=== PATIENT | male | born 1950 | race Caucasian/White ===

== ENCOUNTER 2017-02-03 13:59 | Inpatient (IN) | payer OTHER ==
[~2017-02-03] VITALS: Ht 172.7 cm; Wt 81.6 kg
[2017-02-03] MEDS ORDERED: SODIUM CHLORIDE 0.9% 1000ML 1,000 ML IV SCH (14:05)
[2017-02-03] MEDS ORDERED: WARF7.5T4 PO (14:30)
[2017-02-03] MEDS ORDERED: ATOR-26 PO (14:30)
--- NOTE | 2017-02-03 14:32 | EMERGENCY ROOM VISIT NOTE ---
History Report prepared by Viridiana: Jaclyn Hunter Under the Supervision of: Dr. Topher Feliz D.O. First contact with patient: 14:04 Stated Complaint: POSSIBLE STROKE History of Present Illness The patient is a 66 year old male who presents to the Emergency Room with complaints of stroke-like symptoms beginning around 9:00am today. Patient reports a left-sided weakness and a left facial droop. He feels like it is hard to formulate speech. The patient was admitted to a hospital in [facility] at the beginning of the month for a stroke on January 13. He was found to have a carotid artery dissection at that time. No stents were placed. He was started on Coumadin and discharged from the hospital last week. He recently moved to the [facility]. He followed-up with a local neurologist this week. The patient denies headache, nausea, and vomiting. Source of History: patient Onset: 9:00am Position: other (global) Quality: other (stroke-like) Timing: constant Associated Symptoms: + weakness (left-sided), No headache, No nausea, No vomiting Note: Left facial droop. Review of Systems See HPI for pertinent positives & negatives. A total of 10 systems reviewed and were otherwise negative. Past Medical & Surgical Medical Problems: (1) Carotid artery dissection (2) Hypertension Family History Cancer Diabetes mellitus Heart disease Hypertension Social History Smoking Status: Former Smoker Alcohol Use: none Drug Use: none Housing Status: lives with family Occupation Status: retired Current/Historical Medications Scheduled Atorvastatin (Lipitor), 80 MG PO QPM Warfarin Sod (Jantoven), 7.5 MG PO QPM Allergies Coded Allergies: No Known Allergies (Unverified , 02/03/17) Physical Exam Vital Signs Date Time Temp Pulse Resp B/P (MAP) Pulse Ox O2 Delivery O2 Flow Rate FiO2 02/03/17 15:11 58 18 155/71 95 Room Air 02/03/17 14:51 59 18 152/92 98 Room Air 02/03/17 14:34 64 18 173/91 96 Room Air 02/03/17 14:28 76 02/03/17 14:20 97 Room Air 02/03/17 14:20 36.9 79 18 186/131 97 Room Air Physical Exam GENERAL: Patient is awake, alert, and in no acute distress. Patient is resting comfortably and showing no signs of anxiety EYES: The conjunctivae are clear. The pupils are round and reactive. EARS, NOSE, MOUTH AND THROAT: The nose is without any evidence of any deformity. Mucous membranes are moist tongue is midline NECK: The neck is nontender and supple. No bruits noted to auscultation. RESPIRATORY: Normal respiratory effort is noted there is no evidence of wheezing rhonchi or rales CARDIOVASCULAR: Regular rate and rhythm noted there no murmurs rubs or gallops normal S1 normal S2 GASTROINTESTINAL: The abdomen is soft. Bowel sounds are present in all quadrants. Abdomen is nontender MUSCULOSKELETAL/EXTREMITIES: There is no evidence of gross deformity full range of motion is noted in the hips and shoulders SKIN: Pedal edema bilaterally. There is no obvious evidence of any rash. There are no petechiae, pallor or cyanosis noted. NEUROLOGIC: Patient is awake alert and oriented x3. Subtle facial droop noted on the left with forehead sparing. Night Shift strength diminished in left upper extremity compared to right. Slight drift noted in the left upper extremity. No asymmetry in strength testing to the lower extremities. Medical Decision & Procedures ER Provider Diagnostic Interpretation: Radiology results as stated below per my review and radiologist interpretation: CHEST ONE VIEW PORTABLE CLINICAL HISTORY: Stroke COMPARISON STUDY: No previous studies for comparison. FINDINGS: The bones soft tissues and hemidiaphragms are normal. The cardiomediastinal silhouette is normal. The lungs are clear. The pulmonary vasculature is normal. IMPRESSION: Negative chest. The above report was generated using voice recognition software. It may contain grammatical, syntax or spelling errors. Electronically signed by: Rico Shaw M.D. 02/03/2017 2:43 PM Dictated Date/Time: 02/03/2017 2:37 PM ADDENDUM Note is made that the distal aspect of the right internal carotid artery at the cavernous sinus is occluded. There is collateral reconstitution of the right middle cerebral distribution as well as components of the right anterior cerebral distribution. Flow is dampened and gamma truncation of several peripheral components of the right middle cerebral arterial vasculature. This appearance is suggestive of a pre-existing compensated vascular scenario. IMPRESSION: 1. Review of the intracranial angiogram shows occlusion and occlusion of a short segment of the right cavernous sinus carotid system. There is collateral reconstitution of components of the right middle cerebral and right anterior cerebral again with peripheral truncation of several smaller tributary vessels. 2. This is felt to represent a compensated pre-existing scenario, although a small intracranial extension of a pre-existing infarct is not entirely excluded. Electronically signed by: Rico Shaw M.D. 02/03/2017 2:42 PM Dictated Date/Time: 02/03/2017 2:39 PM ORIGINAL REPORT ANGIOGRAPHY HEAD COMBO HISTORY: Mental status change stroke TECHNIQUE: Multiaxial CT images of the head were performed both before and after the intravenous administration of contrast to evaluate the major cerebral vessels. Maximum intensity projection images were also obtained. A dose lowering technique was utilized adhering to the principles of ALARA. COMPARISON: None. FINDINGS: Unenhanced component of the study confirms the presence of an old right frontoparietal infarct. In addition, there are components of chronic small vessel change throughout both cerebral hemispheres. There is no midline shift. There is no evidence for acute intracranial hemorrhage. The osseous structures appear to be intact. Major sinuses show only a trace amount of mucosal thickening. Visualized intracranial internal carotid arteries, distal vertebral arteries, and basilar artery are widely patent. There is no significant stenosis, occlusion, or aneurysm seen within the bilateral ACAs, MCAs, or spring production supervisor. There are findings of truncation of several smaller peripheral vessels of the right middle cerebral arterial distribution. There is no evidence for aneurysmal distention. IMPRESSION: 1. Truncation of several small vessel of the right peripheral middle cerebral arterial distribution. 2. This correlates of the patient's pre-existing right middle cerebral infarct as well as scattered areas of pre-existing encephalomalacia. 3. Intracranial vasculature is otherwise unremarkable The above report was generated using voice recognition software. It may contain grammatical, syntax or spelling errors. Electronically signed by: Rico Shaw M.D. 02/03/2017 2:30 PM Dictated Date/Time: 02/03/2017 2:25 PM NECK CTA HISTORY: Left-sided weakness. Stroke. TECHNIQUE: Multiaxial CT images of the neck were performed following the intravenous administration of contrast to evaluate the major cervical vessels. Maximum intensity projection images were also obtained. All measurements were calculated based on NASCET criteria. A dose lowering technique was utilized adhering to the principles of ALARA. COMPARISON STUDY: None. FINDINGS: There is moderate noncalcified plaque within the proximal left subclavian artery resulting in approximately 50-60% stenosis. Bilateral common carotid and left internal carotid arteries are widely patent. Mild calcified plaque within the bilateral carotid bulbs. There is complete occlusion of the proximal right internal carotid artery. No contrast identified within the right internal carotid artery beyond the site of occlusion. Bilateral vertebral arteries are widely patent. IMPRESSION: 1. Complete occlusion at the proximal right ICA. 2. Moderate noncalcified plaque within the proximal left subclavian artery resulting in 50-60% focal stenosis. Electronically signed by: Deion Florian M.D. 02/03/2017 2:40 PM Dictated Date/Time: 02/03/2017 2:32 PM Laboratory Results 02/03/17 14:47 Red Blood Count 4.43, Mean Corpuscular Volume 92.6, Mean Corpuscular Hemoglobin 31.8, Mean Corpuscular Hemoglobin Concent 34.4, Mean Platelet Volume 9.1, Neutrophils (%) (Auto) 74.5, Lymphocytes (%) (Auto) 17.0, Monocytes (%) (Auto) 7.5, Eosinophils (%) (Auto) 0.5, Basophils (%) (Auto) 0.3, Neutrophils # (Auto) 7.34, Lymphocytes # (Auto) 1.67, Monocytes # (Auto) 0.74, Eosinophils # (Auto) 0.05, Basophils # (Auto) 0.03 02/03/17 14:47 Test 02/03/17 14:19 02/03/17 14:25 02/03/17 14:41 02/03/17 14:47 Bedside Hemoglobin 15.3 g/dl (14.0-18.0) Bedside Hematocrit 45 % (42-52) Bedside Sodium 141 mEq/L (135-144) Bedside Potassium 4.3 mEq/L (3.3-5.0) Bedside Chloride 99 mEq/L (101-112) Bedside Total CO2 30 mEq/l (24-31) Bedside Blood Urea Nitrogen 14 mg/dl (7-18) Bedside Creatinine 0.8 mg/dl (0.6-1.3) Bedside Glucose (other) 100 mg/dl (70-99) Bedside Ionized Calcium (Myron) 1.24 mmol/l (1.12-1.32) Bedside Glucose 184 mg/dl (70-99) Urine Color YELLOW Urine Appearance CLEAR (CLEAR) Urine pH 6.5 (4.5-7.5) Urine Specific [place] 1.015 (1.000-1.030) Urine Protein NEG (NEG) Urine Glucose (UA) NEG (NEG) Urine Ketones NEG (NEG) Urine Occult Blood TRACE (NEG) Urine Nitrite NEG (NEG) Urine Bilirubin NEG (NEG) Urine Urobilinogen NEG (NEG) Urine Leukocyte Esterase NEG (NEG) Urine WBC (Auto) 0 /hpf (0-5) Urine RBC (Auto) 0-4 /hpf (0-4) Urine Hyaline Casts (Auto) 0 /lpf (0-5) Urine Epithelial Cells (Auto) 0-5 /lpf (0-5) Urine Bacteria (Auto) NEG (NEG) White Blood Count 9.85 K/uL (4.8-10.8) Red Blood Count 4.43 M/uL (4.7-6.1) Hemoglobin 14.1 g/dL (14.0-18.0) Hematocrit 41.0 % (42-52) Mean Corpuscular Volume 92.6 fL (80-100) Mean Corpuscular Hemoglobin 31.8 pg (25-34) Mean Corpuscular Hemoglobin Concent 34.4 g/dl (32-36) Platelet Count 320 K/uL (130-400) Mean Platelet Volume 9.1 fL (7.4-10.4) Neutrophils (%) (Auto) 74.5 % Lymphocytes (%) (Auto) 17.0 % Monocytes (%) (Auto) 7.5 % Eosinophils (%) (Auto) 0.5 % Basophils (%) (Auto) 0.3 % Neutrophils # (Auto) 7.34 K/uL (1.4-6.5) Lymphocytes # (Auto) 1.67 K/uL (1.2-3.4) Monocytes # (Auto) 0.74 K/uL (0.11-0.59) Eosinophils # (Auto) 0.05 K/uL (0-0.5) Basophils # (Auto) 0.03 K/uL (0-0.2) RDW Standard Deviation 46.2 fL (36.4-46.3) RDW Coefficient of Variation 13.6 % (11.5-14.5) Immature Granulocyte % (Auto) 0.2 % Immature Granulocyte # (Auto) 0.02 K/uL (0.00-0.02) Prothrombin Time 22.4 SECONDS (9.0-12.0) Prothromb Time International Ratio 2.0 (0.9-1.1) Activated Partial Thromboplast Time 33.6 SECONDS (21.0-31.0) Partial Thromboplastin Ratio 1.3 Anion Gap 3.0 mmol/L (3-11) Est Creatinine Clear Calc Drug Dose 102.6 ml/min Estimated GFR () 109.2 Estimated GFR (Non- 94.2 BUN/Creatinine Ratio 16.5 (10-20) Calcium Level 8.9 mg/dl (8.5-10.1) Magnesium Level 2.0 mg/dl (1.8-2.4) Total Creatine Kinase 71 U/L (39-308) Creatine Kinase MB 0.9 ng/ml (0.5-3.6) Creatine Kinase MB Ratio 1.3 (0-3.0) Troponin I < 0.015 ng/ml (0-0.045) Laboratory results per my review. ECG Indication: weakness Rate (beats per minute): 63 Rhythm: normal sinus Findings: no acute ischemic change, no ectopy Comparison ECG Date: no prior available ED Course 1356: Prior to the patient's arrival in the ED I took medical command and a stroke alert was called. 1404: The patient arrived in the ED and was taken emergently to CT. 1405: NSS 1000 ml @ 50 mls/hr IV 1413: The patient was evaluated in room B1. A complete history and physical examination were performed. 1444: I updated the patient and his family at the bedside. 1500: The patient was moved to room B11B. 1526: I spoke with Dr. Chen. We discussed the patients case. The patient will be evaluated by the [facility] for further management. 1534: I reassessed the patient at this time. He is feeling better and resting comfortably. I discussed the results and treatment plan with the patient and his family. I answered all pertaining questions that they had. They expressed understanding and verbalized agreement. 1541: I discussed the case with Dr. Sadler of vascular surgery. He will review the patient's case and prior records. Medical Decision Differential diagnosis: Etiologies such as metabolic, infection, hypo/hyperglycemia, electrolyte abnormalities, cardiac sources, intracerebral event, toxicologic, neurologic, as well as others were entertained. Nursing notes reviewed. Additional history is obtained from the patient's family members. The patient's studies from [facility] were requested. The patient is a 66-year-old male who presented to the emergency department by ambulance for unilateral weakness and facial droop. The patient was recently discharged from a hospital in [facility]. He was diagnosed with a carotid artery dissection. The patient states that he was evaluated for stenting and possible surgical correction however at this time the patient is being managed medically with Coumadin. The patient states that he had a worsening of his left facial droop as well as left upper extremity weakness. The patient was made a stroke alert prior to arrival. CT angiography the head and neck were obtained. It is difficult to ascertain if these changes are new or progressive compared to his previous scans. Previous records were ordered and are still pending from [facility] where the patient was admitted. The patient had an elevated INR and he would not be a candidate for TPA. I discussed the patient's laboratory and radiographic studies with him. His condition continued to improve. I also discussed his case with the on-call [facility] hospitalist as well as the vascular surgeon. They've agreed to follow the patient for further management and disposition. Medication Reconcilliation Current Medication List: was personally reviewed by me Blood Pressure Screening Patient's blood pressure: Elevated blood pressure Blood pressure disposition: Elevated BP felt to be situational Consults Time Called: 1522 Consulting Physician: Dr. Chen Returned Call: [address] Chen. We discussed the patients case. The patient will be evaluated by the [facility] for further management. Additional Consults: Time Called: 1539 Consulted Physician: Dr. Sadler Returned Call: [phone] Additional Comments: I discussed the case with Dr. Sadler of vascular surgery. He will review the patient's case and prior records. Impression Primary Impression: CVA (cerebral vascular accident) Additional Impression: Carotid artery occlusion Scribe Attestation The scribe's documentation has been prepared under my direction and personally reviewed by me in its entirety. I confirm that the note above accurately reflects all work, treatment, procedures, and medical decision making performed by me. Departure Information Dispostion Being Evaluated By Hospitalist Referrals No Doctor, Assigned (PCP) Stroke History Time Last Known Well 0900 Stroke t-PA Criteria Reviewed Does NOT meet criteria for t-PA Reason t-PA Not Given Treatment not indicated Problem Qualifiers Primary Impression: CVA (cerebral vascular accident) CVA mechanism: unspecified Qualified Codes: I63.9 - Cerebral infarction, unspecified Additional Impression: Carotid artery occlusion Laterality: right Qualified Codes: I65.21 - Occlusion and stenosis of right carotid artery
--- NOTE | 2017-02-03 14:42 | DIAGNOSTIC IMAGING REPORT ---
NECK CTA HISTORY: Left-sided weakness. Stroke. TECHNIQUE: Multiaxial CT images of the neck were performed following the intravenous administration of contrast to evaluate the major cervical vessels. Maximum intensity projection images were also obtained. All measurements were calculated based on NASCET criteria. A dose lowering technique was utilized adhering to the principles of ALARA. COMPARISON STUDY: None. FINDINGS: There is moderate noncalcified plaque within the proximal left subclavian artery resulting in approximately 50-60% stenosis. Bilateral common carotid and left internal carotid arteries are widely patent. Mild calcified plaque within the bilateral carotid bulbs. There is complete occlusion of the proximal right internal carotid artery. No contrast identified within the right internal carotid artery beyond the site of occlusion. Bilateral vertebral arteries are widely patent. IMPRESSION: 1. Complete occlusion at the proximal right ICA. 2. Moderate noncalcified plaque within the proximal left subclavian artery resulting in 50-60% focal stenosis. Electronically signed by: Deion Florian M.D. 02/03/2017 2:40 PM Dictated Date/Time: 02/03/2017 2:32 PM
--- NOTE | 2017-02-03 14:45 | DIAGNOSTIC IMAGING REPORT ---
CHEST ONE VIEW PORTABLE CLINICAL HISTORY: Stroke COMPARISON STUDY: No previous studies for comparison. FINDINGS: The bones soft tissues and hemidiaphragms are normal. The cardiomediastinal silhouette is normal. The lungs are clear. The pulmonary vasculature is normal. IMPRESSION: Negative chest. The above report was generated using voice recognition software. It may contain grammatical, syntax or spelling errors. Electronically signed by: Rico Shaw M.D. 02/03/2017 2:43 PM Dictated Date/Time: 02/03/2017 2:37 PM
[2017-02-03 15:01] LABS: BASO % 0.3 %; BASO ABS # 0.03 K/uL (0-0.2); EOS % 0.5 %; EOS ABS # 0.05 K/uL (0-0.5); HEMOGLOBIN 14.1 g/dL (14.0-18.0); IG# 0.02 K/uL (0.00-0.02); LYMPH ABS # 1.67 K/uL (1.2-3.4); MEAN CELL VOLUME 92.6 fL (80-100); MEAN CORPUSCULAR HEMOGLOBIN 31.8 pg (25-34); MEAN CORPUSCULAR HGB CONC 34.4 g/dl (32-36); MEAN PLATELET VOLUME 9.1 fL (7.4-10.4); MONO % 7.5 %; MONO ABS # 0.74 K/uL (0.11-0.59); NEUT % 74.5 %; NEUT ABS # 7.34 K/uL (1.4-6.5); PLATELET COUNT 320 K/uL (130-400); RED CELL DISTRIBUTION WIDTH CV 13.6 % (11.5-14.5); RED CELL DISTRIBUTION WIDTH SD 46.2 fL (36.4-46.3); WHITE BLOOD COUNT 9.85 K/uL (4.8-10.8)
[2017-02-03 15:16] LABS: PTT PATIENT 33.6 SECONDS (21.0-31.0)
[2017-02-03 15:22] LABS: BLOOD UREA NITROGEN 13 mg/dl (7-18); CALCIUM 8.9 mg/dl (8.5-10.1); CARBON DIOXIDE 32 mmol/L (21-32); CREATININE 0.79 mg/dl (0.60-1.40); GLUCOSE 96 mg/dl (70-99); POTASSIUM 4.4 mmol/L (3.5-5.1); SODIUM 137 mmol/L (136-145)
[2017-02-03 15:27] LABS: CKMB 0.9 ng/ml (0.5-3.6)
[2017-02-03 15:34] LABS: ISTAT CREATININE 0.8 mg/dl (0.6-1.3); ISTAT IONIZED CALCIUM 1.24 mmol/l (1.12-1.32); ISTAT POTASSIUM 4.3 mEq/L (3.3-5.0)
[2017-02-03] MEDS ORDERED: POLYETHYLENE (MIRALAX) 17 GM PACK PO PRN (16:00)
[2017-02-03] MEDS ORDERED: ONDANSETRON INJ 2 MG/ML 2 ML VIAL IV PRN (16:00)
[2017-02-03] MEDS ORDERED: NITROGLYCERIN 0.4 MG SL PER TAB CHARGE SL PRN (16:00)
[2017-02-03] MEDS ORDERED: ZOLPIDEM TARTRATE 5 MG TAB PO PRN (16:00)
[2017-02-03] MEDS ORDERED: ALUMINUM/MAGNESIUM/SIMETH (MAALOX MAX) 30 ML UDC PO PRN (16:00)
[2017-02-03] MEDS ORDERED: MAGNESIUM HYDROXIDE SUSP 30 ML UDC PO PRN (16:00)
[2017-02-03] MEDS ORDERED: ACETAMINOPHEN 325 MG TAB PO PRN (16:00)
[2017-02-03 16:08] VITALS: O2SAT 97
[2017-02-03] MEDS ORDERED: WARFARIN SOD 7.5 MG TAB PO SCH (17:00)
[2017-02-03 17:15] VITALS: BP 158/90; PULSE 60; TEMP 36.5; Ht 172.7 cm; Wt 81.6 kg
[2017-02-03] MEDS ORDERED: ASPIRIN 81 MG ECTAB PO ONE (17:15)
--- NOTE | 2017-02-03 17:15 | NUR ---
Patient admitted to room 244. community relations representative applied. fall agreement signed. code word denied. oriented patient and daughter to room and call system. instructed patient to ring for assistance - verbalized understanding. afebrile. alert and oriented to person, place, time, situation, and event. vss. sinus bradycardia - sinus rhythm with PAC's on community relations representative. +2 radial and pedal pulses. no edema. lungs clear on room air. abdomen soft non-tender non-distended. normoactive bowel sounds in all four quadrants. skin intact. NIH score 0 at this time. No left arm weakness or facial droop present. patient states he feels completely better than he did this AM. passed dysphagia screening. provided stroke packet for education. left antecubital 18 gauge IV saline locked. call carlson within reach. bed in lowest position. will continue to monitor. see emr for full assessment.
--- NOTE | 2017-02-03 17:46 | NUR ---
Dr. Chen made aware Dr. Sadler will not see patient until Wednesday.
--- NOTE | 2017-02-03 17:48 | History and Physical ---
History & Physical Date & Time of Service: Feb 03, 2017 at 17:07 Chief Complaint: Carotid Artery Occlusion,Cva,Hypertension Primary Care Physician: Leno Alexander M.D. History of Present Illness Source: patient, family Pt is 66 y/o M presented to ER with c/o L arm weakness and paresthesias. Pt states hadn't been seen by PCP for greater than 15 years so is unsure of previous medical history. Reports has been told in past high BP but hasn't been on medications. He reports hx CVA on 01/13/17 with sudden onset of L arm and L leg weakness, L facial droop and was seen at [facility] and reports had workup including MRI, angioplasty, ECHO and states was told had right sided CVA and R carotid dissection. Pt states was treated with heparin and started on coumadin. States in hospital on day 2 was able to walk around without any leg weakness. Pt states still with some residual left hand weakness , but other symptoms resolved. He states has been doing arm and leg exercises at home twice daily since discharge. D/C on 01/27/17 per family. He was d/c home on Lipitor 80mg daily and coumadin 7.5mg daily. Pt states INR was 2.0 when ready to be d/c and then was 1.8. He had INR checked yesterday and was 1.7. States today around 9:00AM was straining to have a BM and then started with "foggy feeling in my brain", trouble walking "felt like walking in circles" and L arm & hand weakness and paresthesias. Called EMS. States this lasted approx 1 hour. Now feels back to baseline and reports L hand feels weak like it did after his first stroke. Denies any facial drooping or trouble with speech today and family member with him in ER denies any noted speech problems or facial drooping today. Denies fever/chills, diaphoresis, N/V/D, ARROYO, dizziness, syncope , vision changes, neck pain, CP, SOB, orthopnea, palpitations, cough, sore throat, choking, dysphagia, otalgia, rhinorrhea, abdominal pain, extremity edema , rashes, urinary symptoms, melena, hematochezia. Pt lived in [place], but has now moved to [place] to be close to family. He hasn't established with PCP yet, but is planning on establishing with [facility] PCP. He saw [facility] neurology yesterday. Records pending from [facility]. In ER today neck CTA: complete occlusion proximal R ICA. Head CTA: occlusion short segment R cavernous sinus carotid system, collateral reconstitution of components R middle cerebral and R anterior cerebral with peripheral truncation. INR: 2.0. Initially BP 186/131 down to 155/71 without tx. Pt denies surgical hx. Past Medical/Surgical History Medical Problems: (1) Carotid artery dissection Status: Chronic (2) CVA (cerebral vascular accident) Permanent Comment: 01/13/17 - seen at [facility] Status: Resolved (3) Hypertension Status: Chronic Family History Diabetes mellitus FATHER FH: hyperlipidemia FATHER Heart disease FATHER Hypertension FATHER Social History Smoking Status: Former Smoker (Stopped smoking 21 days ago. Hx smoking 1.5ppd x 30-40 years) Smokeless Tobacco Use: No Alcohol Use: None for 3 years. previous 6-12 beers daily Drug Use: none Housing status: other (moved in with family) Occupational Status: retired Allergies Coded Allergies: No Known Allergies (Unverified , 02/03/17) Home Medications Scheduled Aspirin (Aspirin EC Low Dose), 81 MG PO QAM Atorvastatin (Lipitor), 80 MG PO QPM Warfarin Sod (Jantoven), 7.5 MG PO QPM Review of Systems Constitutional: + weakness (see HPI), No fever, No chills, No sweats, No weight loss, No fatigue, No problem reported Eyes: + problem reported, No worsening of vision, No eye pain, No redness, No discharge, No diplopia ENT: No hearing loss, No unusual epistaxis, No nasal symptoms, No sore throat, No tinnitus, No trouble swallowing Respiratory: No cough, No sputum, No wheezing, No shortness of breath, No dyspnea on exertion, No dyspnea at rest Cardiovascular: No chest pain, No orthopnea, No PND, No edema, No claudication , No palpitations Abdomen: No pain, No nausea, No vomiting, No diarrhea, No GI bleeding Musculoskeletal: No joint pain, No muscle pain, No swelling, No calf pain Neurologic: + problem reported (see HPI) Psychiatric: No depression symptoms, No anxiety Endocrine: No fatigue, No excessive thirst, No excessive urination Integumentary: No rash, No itch Physical Exam Vital Signs Date Time Temp Pulse Resp B/P (MAP) Pulse Ox O2 Delivery O2 Flow Rate FiO2 02/03/17 16:08 59 18 138/79 97 Room Air 02/03/17 15:11 58 18 155/71 95 Room Air 02/03/17 14:51 59 18 152/92 98 Room Air 02/03/17 14:34 64 18 173/91 96 Room Air 02/03/17 14:28 76 02/03/17 14:20 97 Room Air 02/03/17 14:20 36.9 79 18 186/131 97 Room Air General Appearance: WD/WN, no apparent distress Head: normocephalic, atraumatic Eyes: normal inspection, PERRL, EOMI, sclerae normal ENT: hearing grossly normal, pharynx normal, + pertinent finding (moist mucous membranes) Neck: supple, no JVD, trachea midline, + pertinent finding (no carotid bruit noted, right carotid without heart sounds noted) Respiratory/Chest: chest non-tender, lungs clear, normal breath sounds, no respiratory distress, no accessory muscle use Cardiovascular: no edema, no murmur, normal peripheral pulses, + bradycardia ( 50's) Abdomen/GI: normal bowel sounds, non tender, soft Extremities/Musculoskelatal: normal inspection, normal capillary refill, no pedal edema, normal range of motion, non-tender Neurologic/Psych: alert, normal mood/affect, oriented x 3, + pertinent finding (no facial droop, normal speech. equal strength bilateral legs, left arm weakness noted, decreased nurse orthopaedic strength left hand, decreased rapid alternating movements with left hand/fingers, negative romberg) Diagnostics Laboratory Results Results Past 24 Hours Test 02/03/17 14:19 02/03/17 14:25 02/03/17 14:41 02/03/17 14:47 Range/Units Bedside Hemoglobin 15.3 14.0-18.0 g/dl Bedside Hematocrit 45 42-52 % Bedside Sodium 141 135-144 mEq/L Bedside Potassium 4.3 3.3-5.0 mEq/L Bedside Chloride 99 101-112 mEq/L Bedside Total CO2 30 24-31 mEq/l Anion Gap 18.0 3.0 3-11 mmol/L Bedside Blood Urea Nitrogen 14 7-18 mg/dl Bedside Creatinine 0.8 0.6-1.3 mg/dl Bedside Glucose (other) 100 70-99 mg/dl Bedside Ionized Calcium (Myron) 1.24 1.12-1.32 mmol/l Bedside Glucose 184 70-99 mg/dl Urine Color YELLOW Urine Appearance CLEAR CLEAR Urine pH 6.5 4.5-7.5 Urine Specific [place] 1.015 1.000-1.030 Urine Protein NEG NEG Urine Glucose (UA) NEG NEG Urine Ketones NEG NEG Urine Occult Blood TRACE NEG Urine Nitrite NEG NEG Urine Bilirubin NEG NEG Urine Urobilinogen NEG NEG Urine Leukocyte Esterase NEG NEG Urine WBC (Auto) 0 0-5 /hpf Urine RBC (Auto) 0-4 0-4 /hpf Urine Hyaline Casts (Auto) 0 0-5 /lpf Urine Epithelial Cells (Auto) 0-5 0-5 /lpf Urine Bacteria (Auto) NEG NEG White Blood Count 9.85 4.8-10.8 K/uL Red Blood Count 4.43 4.7-6.1 M/uL Hemoglobin 14.1 14.0-18.0 g/dL Hematocrit 41.0 42-52 % Mean Corpuscular Volume 92.6 80-100 fL Mean Corpuscular Hemoglobin 31.8 25-34 pg Mean Corpuscular Hemoglobin Concent 34.4 32-36 g/dl Platelet Count 320 130-400 K/uL Mean Platelet Volume 9.1 7.4-10.4 fL Neutrophils (%) (Auto) 74.5 % Lymphocytes (%) (Auto) 17.0 % Monocytes (%) (Auto) 7.5 % Eosinophils (%) (Auto) 0.5 % Basophils (%) (Auto) 0.3 % Neutrophils # (Auto) 7.34 1.4-6.5 K/uL Lymphocytes # (Auto) 1.67 1.2-3.4 K/uL Monocytes # (Auto) 0.74 0.11-0.59 K/uL Eosinophils # (Auto) 0.05 0-0.5 K/uL Basophils # (Auto) 0.03 0-0.2 K/uL RDW Standard Deviation 46.2 36.4-46.3 fL RDW Coefficient of Variation 13.6 11.5-14.5 % Immature Granulocyte % (Auto) 0.2 % Immature Granulocyte # (Auto) 0.02 0.00-0.02 K/uL Prothrombin Time 22.4 9.0-12.0 SECONDS Prothromb Time International Ratio 2.0 0.9-1.1 Activated Partial Thromboplast Time 33.6 21.0-31.0 SECONDS Partial Thromboplastin Ratio 1.3 Sodium Level 137 136-145 mmol/L Potassium Level 4.4 3.5-5.1 mmol/L Chloride Level 102 98-107 mmol/L Carbon Dioxide Level 32 21-32 mmol/L Blood Urea Nitrogen 13 7-18 mg/dl Creatinine 0.79 0.60-1.40 mg/dl Est Creatinine Clear Calc Drug Dose 102.6 ml/min Estimated GFR () 109.2 Estimated GFR (Non- 94.2 BUN/Creatinine Ratio 16.5 10-20 Random Glucose 96 70-99 mg/dl Calcium Level 8.9 8.5-10.1 mg/dl Magnesium Level 2.0 1.8-2.4 mg/dl Total Creatine Kinase 71 39-308 U/L Creatine Kinase MB 0.9 0.5-3.6 ng/ml Creatine Kinase MB Ratio 1.3 0-3.0 Troponin I < 0.015 0-0.045 ng/ml Diagnostic Radiology CXR: IMPRESSION: Negative chest HEAD CTA: IMPRESSION: 1. Review of the intracranial angiogram shows occlusion and occlusion of a short segment of the right cavernous sinus carotid system. There is collateral reconstitution of components of the right middle cerebral and right anterior cerebral again with peripheral truncation of several smaller tributary vessels. 2. This is felt to represent a compensated pre-existing scenario, although a small intracranial extension of a pre-existing infarct is not entirely excluded. CTA NECK: IMPRESSION: 1. Complete occlusion at the proximal right ICA. 2. Moderate noncalcified plaque within the proximal left subclavian artery resulting in 50-60% focal stenosis. EKG EKG: NSR rate 63, no ST elevation noted Impression Assessment and Plan CVA: Pt with hx acute CVA on 01/13/17, hospitalized in [facility] -01/27/17. Pending records. Pt d/c on Lipitor and Coumadin. Pt with INR 1.7 yesterday. Today INR 2.0. Today CTA head: occlusion of a short segment of the right cavernous sinus carotid system.collateral reconstitution of components of the right middle cerebral and right anterior cerebral again with peripheral truncation of several smaller tributary vessels. CTA NECK: Complete occlusion proximal R ICA. Subtherapeutic INR previously and recurrent stroke symptoms today that lasted 1 hour. back to baseline currently -monitor, neuro checks -Will hold on further workup until previous records reviewed -continue Coumadin -INR in am -Start ASA 81mg daily -neuro consult, recommends Coumadin and ASA 81 mg -hold on aggressive BP management at this time -PT/OT consult R INTERNAL CAROTID COMPLETE OCCLUSION: CTA NECK: Complete occlusion at the proximal right ICA. Moderate noncalcified plaque within the proximal left subclavian artery resulting in 50-60% focal stenosis. -continue Coumadin -continue lipitor -start ASA 81mg daily -vascular consult DVT PROPHYLAXIS -heparin SQ DISPOSITION -admit tele -Full Code as per discussion with pt Pt was seen with Dr Chen. See addendum ATTENDING ADDENDUM : pt seen and examined in agreement with above H&P 66 yo M with recent Rt MCA infarction , left sided weakness , Rt internal Carotid occlusion was admitted to [facility] [place] discharged on 01/27/17 on Coumadin presents today with dizzy spell , lightheadedness while straining for bowel movement noted to have more weakness on left upper ext pt will be monitored in Tele CTA of neck shows complete occlusion of RT ICA vascular surgery consulted cont Coumadin , INR 2.2 added Aspirin Neurology eval requested PT/OT eval prior to discharge ,no evidence of Dysphagia or dysarthria aNnda Chen MD Level of Care Telemetry Resuscitation Status FULL RESUSCITATION VTE Prophylaxis VTE Risk Assessment Done? Y/N: Yes Risk Level: Moderate Given or contraindicated: Unfractionated heparin SQ
[2017-02-03 19:26] VITALS: BP 164/97; PULSE 63; TEMP 36.5; O2SAT 97
--- NOTE | 2017-02-03 19:53 | NUR ---
A: Upon assessment, patient resting in bed without complaints, NIH 0, Neuro checks performed, watching t.v., family at bedside, is manager on, refer to 1999 assessment, VS stable, denies pain/discomfort at this time, instructed to ring for assistance with ambulation, patient states: "I just don't want to bother you," patient reassured, fall safety reviewed with patient and son, both verbalize understanding, call carlson within reach, bedside table within reach, will continue to monitor.
[2017-02-03] MEDS ORDERED: ATORVASTATIN 40 MG TAB PO SCH (21:00)
[2017-02-03] MEDS ORDERED: HEPARIN SOD 5000 UNIT/0.5 ML CARP SQ SCH (21:00)
[2017-02-03 23:53] VITALS: BP 142/86; PULSE 61; TEMP 36.6; O2SAT 96
--- NOTE | 2017-02-04 00:01 | NUR ---
A: Upon assessment, patient resting in bed without complaints, home health travel pt on, refer to 0001 assessment, VS stable, denies pain/discomfort, call carlson within reach,. bedside table within reach, will continue to monitor.
[2017-02-04 03:50] VITALS: BP 152/94; PULSE 50; TEMP 36.8; O2SAT 97
[2017-02-04 08:00] VITALS: BP_SYST 156; BP_SYST 161; BP_DIAS 79; BP_DIAS 96; PULSE 52; TEMP 36.4; O2SAT 97
--- NOTE | 2017-02-04 08:12 | NUR ---
Pt resting in bed, reports feeling better but still has mild weakness in right hand still not back to baseline. Ate breakfast, good appetite. NIH 0. Persistent HTN this stay, reported to MD; no new orders received. Call carlson in reach.
[2017-02-04] MEDS ORDERED: ASPIRIN 81 MG ECTAB PO SCH (09:00)
--- NOTE | 2017-02-04 10:41 | NUR ---
Case Management: Consult received. Met with pt. in room. He states he lives with his daughter in a one story home and is independent at baseline. He does not drive, his daughter transports where needed. He denies any current devices or services at home. He does confirm that he currently does not have insurance "my daughter is working on Medicaid and Medicare at the moment". He denies any needs at discharge. Case management to follow.
[2017-02-04 12:00] VITALS: BP 138/81; PULSE 61; TEMP 36.9; O2SAT 97
--- NOTE | 2017-02-04 12:00 | NUR ---
Pt resting in bed, waiting for MD to speak with vasc surg to decide if pt can dc home today. Daughter bedside. No changes, no complaints.
[2017-02-04] MEDS ORDERED: ASPI-320 PO (15:15)
--- NOTE | 2017-02-04 15:19 | Discharge Instructions ---
Discharge Instructions Date of Service Feb 04, 2017. Admission Reason for Admission: Carotid Artery Occlusion,Cva,Hypertension Discharge Discharge Diagnosis / Problem: Strokes like symptoms Discharge Goals Goal(s): Decrease discomfort, Improve function, Improve disease control Activity Recommendations Activity Limitations: resume your previous activity . Instructions / Follow-Up Instructions / Follow-Up Follow up with your primary care provider (already has an appointment with physician Follow up with neurology follow up with vascular Dr. Sadler Continue PT/OT Follow up with the Coumadin clinic Current Hospital Diet Patient's current hospital diet: AHA Diet (Heart Healthy) Discharge Diet Recommended Diet: AHA Diet (Heart Healthy) Pending Studies Studies pending at discharge: no Laboratory Results Lipid Panel Test 02/04/17 07:07 Range/Units Triglycerides Level 85 0-150 mg/dl Cholesterol Level 106 0-200 mg/dl HDL Cholesterol 62 mg/dl Cholesterol/HDL Ratio 1.7 LDL Cholesterol, Calculated 27 mg/dl Medical Emergencies . Who to Call and When: Medical Emergencies: If at any time you feel your situation is an emergency, please call 911 immediately. . Non-Emergent Contact Non-Emergency issues call your: Primary Care Provider Call Non-Emergent contact if: you have any medication questions . . "Provider Documentation" section prepared by Blessing Bryant. . VTE Core Measure Inpt VTE Proph given/why not?: Enoxaparin (Lovenox)SQ, Warfarin (Coumadin)
[2017-02-04 15:22] VITALS: BP 138/81; PULSE 61; TEMP 36.9; O2SAT 97
--- NOTE | 2017-02-04 15:33 | NUR ---
Discharge instructions provided to the patient. all questions answered to the patient and families satisfaction. classified copy control clerk removed from the patient and returned to the front desk administrator. IV discontinued. pt to be taken by wheelchair to private vehicle.
--- NOTE | 2017-02-04 17:50 | Progress Note ---
Medicine Progress Note Date & Time of Visit: Feb 04, 2017 at 12:44. Subjective Pt was seen and examined Sitting at the edge of the bed with no distress Pt said that he feels fine Very anxious to go home today Denies any chest pain, palpitation, dizziness and SOB Objective Last 8 Hrs Date Time Temp Pulse Resp B/P (MAP) Pulse Ox O2 Delivery O2 Flow Rate FiO2 02/04/17 08:00 36.4 52 18 156/79 (104) 97 Room Air 161/96 (117) 02/04/17 08:00 Room Air Physical Exam: General- No acute distress Head- atraumatic Eyes- PERRL, EOMI ENT- oropharynx clear Neck- no JVD Lungs- clear to auscultation Heart- regular rhythm; no murmur Abdomen- normal bowel sounds, soft Extremities- no pretibial edema, no calf tenderness Neuro- alert, oriented x 3; PERRL, EOMI; no facial palsy Skin- warm & dry Laboratory Results: Last 24 Hours Test 02/03/17 14:19 02/03/17 14:25 02/03/17 14:41 02/03/17 14:47 Bedside Hemoglobin 15.3 g/dl Bedside Hematocrit 45 % Bedside Sodium 141 mEq/L Bedside Potassium 4.3 mEq/L Bedside Chloride 99 mEq/L Bedside Total CO2 30 mEq/l Anion Gap 18.0 mmol/L 3.0 mmol/L Bedside Blood Urea Nitrogen 14 mg/dl Bedside Creatinine 0.8 mg/dl Bedside Glucose (other) 100 mg/dl Bedside Ionized Calcium (Myron) 1.24 mmol/l Bedside Prothrombin Time INR 2.2 Bedside Glucose 184 mg/dl Urine Color YELLOW Urine Appearance CLEAR Urine pH 6.5 Urine Specific [place] 1.015 Urine Protein NEG Urine Glucose (UA) NEG Urine Ketones NEG Urine Occult Blood TRACE Urine Nitrite NEG Urine Bilirubin NEG Urine Urobilinogen NEG Urine Leukocyte Esterase NEG Urine WBC (Auto) 0 /hpf Urine RBC (Auto) 0-4 /hpf Urine Hyaline Casts (Auto) 0 /lpf Urine Epithelial Cells (Auto) 0-5 /lpf Urine Bacteria (Auto) NEG White Blood Count 9.85 K/uL Red Blood Count 4.43 M/uL Hemoglobin 14.1 g/dL Hematocrit 41.0 % Mean Corpuscular Volume 92.6 fL Mean Corpuscular Hemoglobin 31.8 pg Mean Corpuscular Hemoglobin Concent 34.4 g/dl Platelet Count 320 K/uL Mean Platelet Volume 9.1 fL Neutrophils (%) (Auto) 74.5 % Lymphocytes (%) (Auto) 17.0 % Monocytes (%) (Auto) 7.5 % Eosinophils (%) (Auto) 0.5 % Basophils (%) (Auto) 0.3 % Neutrophils # (Auto) 7.34 K/uL Lymphocytes # (Auto) 1.67 K/uL Monocytes # (Auto) 0.74 K/uL Eosinophils # (Auto) 0.05 K/uL Basophils # (Auto) 0.03 K/uL RDW Standard Deviation 46.2 fL RDW Coefficient of Variation 13.6 % Immature Granulocyte % (Auto) 0.2 % Immature Granulocyte # (Auto) 0.02 K/uL Prothrombin Time 22.4 SECONDS Prothromb Time International Ratio 2.0 Activated Partial Thromboplast Time 33.6 SECONDS Partial Thromboplastin Ratio 1.3 Sodium Level 137 mmol/L Potassium Level 4.4 mmol/L Chloride Level 102 mmol/L Carbon Dioxide Level 32 mmol/L Blood Urea Nitrogen 13 mg/dl Creatinine 0.79 mg/dl Est Creatinine Clear Calc Drug Dose 102.6 ml/min Estimated GFR () 109.2 Estimated GFR (Non- 94.2 BUN/Creatinine Ratio 16.5 Random Glucose 96 mg/dl Calcium Level 8.9 mg/dl Magnesium Level 2.0 mg/dl Total Creatine Kinase 71 U/L Creatine Kinase MB 0.9 ng/ml Creatine Kinase MB Ratio 1.3 Troponin I < 0.015 ng/ml Test 02/04/17 07:06 02/04/17 07:07 Prothrombin Time 21.6 SECONDS Prothromb Time International Ratio 2.0 Triglycerides Level 85 mg/dl Cholesterol Level 106 mg/dl HDL Cholesterol 62 mg/dl LDL Cholesterol, Calculated 27 mg/dl VLDL Cholesterol, Calculated 17 mg/dl Cholesterol/HDL Ratio 1.7 Assessment & Plan Stroke like symptoms Possible related to TIA Pt with hx acute CVA on 01/13/17, hospitalized in [facility] -01/27/17. CTA head showed complete occlusion at the proximal right ICA. Moderate noncalcified plaque within the proximal left subclavian artery resulting in 50- 60% focal stenosis. [facility] chart reviewed and the complete occlusion was present from the MRA of head at [facility] On coumadin, INR 2 and statin Aspirin adding No arrhythmia on tele monitor Allow permissive HTN continue PT/OT OK to discharge home from neurology standpoint Neurology Clinically improved significantly Follow up with neurology as an outpatient R INTERNAL CAROTID COMPLETE OCCLUSION: CTA NECK: Complete occlusion at the proximal right ICA. Moderate noncalcified plaque within the proximal left subclavian artery resulting in 50-60% focal stenosis. Case discussed with Dr. Vascular Dr. Sadler over the phone, recommended to continue coumadin and aspirin and follow up image in 6 months Vascular will see patient as an outpatient On Coumadin, Lipitor and Aspirin adding. INR 2 HTN Keep BP in the high side continue monitor BP DVT PROPHYLAXIS heparin SQ Full Code DISPOSITION Discharge home today Continue PT/OT Fall precaution Follow up with your new PCP (already has appt schedule) Follow up with Neurology ( already has follow up appt schedule) Follow up with Vascular ( PCP will put for the referral) Continue coag clinic Consultants: Neuro Current Inpatient Medications: Current Inpatient Medications Medications (Trade) Dose Ordered Sig/Daniel Route Start Time Stop Time Status Last Admin Dose Admin Acetaminophen (Tylenol Tab) 650 mg Q4H PRN PO 02/03/17 16:00 03/05/17 15:59 Al Hydrox/Mg Hydrox/Simethicone (Maalox Max Susp) 15 ml Q4H PRN PO 02/03/17 16:00 03/05/17 15:59 Magnesium Hydroxide (Milk Of Magnesia Susp) 30 ml Q12H PRN PO 02/03/17 16:00 03/05/17 15:59 Zolpidem Tartrate (Ambien Tab) 5 mg HSZ PRN PO 02/03/17 16:00 03/05/17 15:59 Ondansetron HCl (Zofran Inj) 4 mg Q6H PRN IV 02/03/17 16:00 03/05/17 15:59 Nitroglycerin (Nitrostat Tab) 0.4 mg UD PRN SL 02/03/17 16:00 03/05/17 15:59 Aspirin (Ecotrin Tab) 81 mg QAM PO 02/04/17 09:00 03/06/17 08:59 02/04/17 08:02 81 MG Polyethylene (Miralax Powder Packet) 17 gm DAILY PRN PO 02/03/17 16:00 12/22/17 15:59 Atorvastatin Calcium (Lipitor Tab) 80 mg QPM PO 02/03/17 21:00 03/05/17 20:59 02/03/17 19:48 80 MG Warfarin Sodium (Coumadin Tab) 7.5 mg DAILY@1600 PO 02/03/17 17:00 03/05/17 16:59 02/03/17 18:17 7.5 MG
--- NOTE | 2017-02-05 07:14 | CONSULTATION REPORT ---
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 He had chiropractic manipulation over the past several months for treatment of his shoulder and neck issues and has had chiropractic manipulation about 3 days prior to the stroke, which occurred on the January 13. He was found to have a mild left hemiparesis, moving the arm, moving the leg with some involvement of the face and some neglect and was placed on Coumadin. He had extensive workup confirming the presence of dissection and no other source of the stroke and was seen actually by CHAIM Maciel in my office several days ago. No records were available at that time and he had not at that point picked a primary care physician in [place]. He was scheduled to have another MRI to assess the stroke and perhaps the status of the internal carotid artery and this was to be done in several weeks. His protime apparently fell a little bit into the subtherapeutic range and this coupled with the fact that he was straining on having a bowel movement and then suddenly felt lightheaded and had worsening with left hemiparesis combined to bring him in to the hospital and be admitted. He feels his left arm was significantly worse right after the event, but is now improved to the point that he is near his baseline. It sounds as though with the straining at stool, he did perhaps have some hypotension as he felt his vision was swimming and was a little lightheaded. Whatever the case, he had a CTA done, which now confirms the presence of a total occlusion of the internal carotid artery with reconstitution of the right middle cerebral artery and anterior cerebral artery vessels via collateral flow from the left. The radiology report has been amended to suggest that there is also a distal occlusion in the cavernous sinus region as well. PAST MEDICAL HISTORY: Pretty unremarkable with the exception of the carotid artery dissection and a CVA. He did have shoulder issue and some back problems, for which he was seeing a chiropractor and has a history of hypertension. MEDICATIONS: On an outpatient basis include atorvastatin and the Coumadin managed by the Coumadin clinic. He is not on any antihypertensives. He was not taking aspirin. FAMILY HISTORY: Reveals that his father had diabetes, dyslipidemia, heart disease and hypertension. Otherwise, there is no significant family history for vascular disease. ALLERGIES: He has no drug allergies. REVIEW OF SYSTEMS: Reveals increased focal weakness in the left arm, which is now back to what he thinks is his baseline post-CVA. He has had no headaches, no other issues involving the head, eyes, ears, nose and throat. Cardiovascular, pulmonary, gastrointestinal, genitourinary, and musculoskeletal systems other than those described above. SOCIAL HISTORY: Reveals him to be a nonsmoker, minimal consumer of ethanol, to be retired, now residing in [place] with his daughter. PHYSICAL EXAMINATION: VITAL SIGNS: On examination yesterday his blood pressure on arrival was 138/79, pulse was 59, and respirations were 18. GENERAL: He was awake, alert, oriented in 3 spheres, not appear to be in any acute distress with no carotid bruits. HEENT: Unremarkable. LUNGS: Clear. HEART: Had a regular rhythm. ABDOMEN: Free of organomegaly. There was no ascites. EXTREMITIES: Free of edema and good peripheral pulses. NEUROLOGICAL: Today, he is awake and alert. He has a mildly dysarthric speech pattern and a slight left upper motor neuron facial paresis. No visual field cuts or neglect. No loss of facial sensation. Tongue protrudes in the midline. There is a drift and pronation of the left arm and some increased tone in the left arm and leg. The toe sign on the left is neutral. There is a positive Villafuerte's in the left arm. Reflexes are a little brisk on the left side. Strength is actually reasonably good proximally and distally with individual group testing, but he is quite reduced at this facility of rapid repetitive motions, which does produce a form of weakness. He also has some sensory neglect to bilaterally presented sensory stimuli on the left yet primary modalities seem to be little involved. At this point, his INR needs to get back into the therapeutic range and I would add some aspirin in the form of 81 mg just to be on the safe side. He should be evaluated by physical therapy. If stable and felt back to his baseline, he could probably be discharged within the next day or two with followup in our clinic with another MRI and review of his medications. At some point in the future, despite the fact that the carotid appears to be occluded, I would do another CTA probably in several months as with dissections there can be recanalization late. I am not optimistic that this will occur, but we certainly have a reason to perform another diagnostic study in an outpatient herrera to check the status of the vessel. I will check back with him tomorrow. Addendum Records from [facility] suggest that the carotid was occluded then so the current imaging study does not likely show a completion of an occlusion In this setting then the valsalva maneuver during defecation likely produced bradycardio and hypotension with collateral failure to the right hemisphere rather than recurrent embolization and bp should justin bit higher than ideal we will continue dual anticoagulation with asa and coumadin and follow up with mri as scheduled we will still do cta in two to three months t see if recanalization occurs but in light of the total occlusion suspect it will not anc coumadin can be stopped I may even stop the aspirin on his next outpatient return post mri Mary Jane Alberto MD MTDD
--- NOTE | 2017-02-09 00:47 | Discharge Summary ---
Discharge Summary Date of Service Feb 09, 2017. Discharge Summary Admission Date: Feb 03, 2017 at 15:51 Discharge Date: Feb 04, 2017 Discharge Disposition: Home Principal Diagnosis: Strokes like symptoms Secondary Diagnoses/Problems: R INTERNAL CAROTID COMPLETE OCCLUSION: HTN Procedures: NECK CTA HISTORY: Left-sided weakness. Stroke. TECHNIQUE: Multiaxial CT images of the neck were performed following the intravenous administration of contrast to evaluate the major cervical vessels. Maximum intensity projection images were also obtained. All measurements were calculated based on NASCET criteria. A dose lowering technique was utilized adhering to the principles of ALARA. COMPARISON STUDY: None. FINDINGS: There is moderate noncalcified plaque within the proximal left subclavian artery resulting in approximately 50-60% stenosis. Bilateral common carotid and left internal carotid arteries are widely patent. Mild calcified plaque within the bilateral carotid bulbs. There is complete occlusion of the proximal right internal carotid artery. No contrast identified within the right internal carotid artery beyond the site of occlusion. Bilateral vertebral arteries are widely patent. IMPRESSION: 1. Complete occlusion at the proximal right ICA. 2. Moderate noncalcified plaque within the proximal left subclavian artery resulting in 50-60% focal stenosis. Electronically signed by: Deion Florian M.D. 02/03/2017 2:40 PM Dictated Date/Time: 02/03/2017 2:32 PM ADDENDUM Note is made that the distal aspect of the right internal carotid artery at the cavernous sinus is occluded. There is collateral reconstitution of the right middle cerebral distribution as well as components of the right anterior cerebral distribution. Flow is dampened and gamma truncation of several peripheral components of the right middle cerebral arterial vasculature. This appearance is suggestive of a pre-existing compensated vascular scenario. IMPRESSION: 1. Review of the intracranial angiogram shows occlusion and occlusion of a short segment of the right cavernous sinus carotid system. There is collateral reconstitution of components of the right middle cerebral and right anterior cerebral again with peripheral truncation of several smaller tributary vessels. 2. This is felt to represent a compensated pre-existing scenario, although a small intracranial extension of a pre-existing infarct is not entirely excluded. Electronically signed by: Rico Shaw M.D. 02/03/2017 2:42 PM Dictated Date/Time: 02/03/2017 2:39 PM ORIGINAL REPORT ANGIOGRAPHY HEAD COMBO HISTORY: Mental status change stroke TECHNIQUE: Multiaxial CT images of the head were performed both before and after the intravenous administration of contrast to evaluate the major cerebral vessels. Maximum intensity projection images were also obtained. A dose lowering technique was utilized adhering to the principles of ALARA. COMPARISON: None. FINDINGS: Unenhanced component of the study confirms the presence of an old right frontoparietal infarct. In addition, there are components of chronic small vessel change throughout both cerebral hemispheres. There is no midline shift. There is no evidence for acute intracranial hemorrhage. The osseous structures appear to be intact. Major sinuses show only a trace amount of mucosal thickening. Visualized intracranial internal carotid arteries, distal vertebral arteries, and basilar artery are widely patent. There is no significant stenosis, occlusion, or aneurysm seen within the bilateral ACAs, MCAs, or city library director. There are findings of truncation of several smaller peripheral vessels of the right middle cerebral arterial distribution. There is no evidence for aneurysmal distention. IMPRESSION: 1. Truncation of several small vessel of the right peripheral middle cerebral arterial distribution. 2. This correlates of the patient's pre-existing right middle cerebral infarct as well as scattered areas of pre-existing encephalomalacia. 3. Intracranial vasculature is otherwise unremarkable The above report was generated using voice recognition software. It may contain grammatical, syntax or spelling errors. Electronically signed by: Rico Shaw M.D. 02/03/2017 2:30 PM Dictated Date/Time: 02/03/2017 2:25 PM Consultations: Neuro Medication Reconciliation New Medications: Aspirin (Aspirin EC Low Dose) 81 Mg Ectab 81 MG PO QAM for 30 Days Continued Medications: Atorvastatin (Lipitor) 80 Mg Tab 80 MG PO QPM, TAB Warfarin Sod (Jantoven) 7.5 Mg Tab 7.5 MG PO QPM, TAB Admission Information HPI (per Admitting provider): Pt is 66 y/o M presented to ER with c/o L arm weakness and paresthesias. Pt states hadn't been seen by PCP for greater than 15 years so is unsure of previous medical history. Reports has been told in past high BP but hasn't been on medications. He reports hx CVA on 01/13/17 with sudden onset of L arm and L leg weakness, L facial droop and was seen at [facility] and reports had workup including MRI, angioplasty, ECHO and states was told had right sided CVA and R carotid dissection. Pt states was treated with heparin and started on coumadin. States in hospital on day 2 was able to walk around without any leg weakness. Pt states still with some residual left hand weakness , but other symptoms resolved. He states has been doing arm and leg exercises at home twice daily since discharge. D/C on 01/27/17 per family. He was d/c home on Lipitor 80mg daily and coumadin 7.5mg daily. Pt states INR was 2.0 when ready to be d/c and then was 1.8. He had INR checked yesterday and was 1.7. States today around 9:00AM was straining to have a BM and then started with "foggy feeling in my brain", trouble walking "felt like walking in circles" and L arm & hand weakness and paresthesias. Called EMS. States this lasted approx 1 hour. Now feels back to baseline and reports L hand feels weak like it did after his first stroke. Denies any facial drooping or trouble with speech today and family member with him in ER denies any noted speech problems or facial drooping today. Denies fever/chills, diaphoresis, N/V/D, ARROYO, dizziness, syncope , vision changes, neck pain, CP, SOB, orthopnea, palpitations, cough, sore throat, choking, dysphagia, otalgia, rhinorrhea, abdominal pain, extremity edema , rashes, urinary symptoms, melena, hematochezia. Pt lived in [place], but has now moved to [place] to be close to family. He hasn't established with PCP yet, but is planning on establishing with [facility] PCP. He saw [facility] neurology yesterday. Records pending from [facility]. In ER today neck CTA: complete occlusion proximal R ICA. Head CTA: occlusion short segment R cavernous sinus carotid system, collateral reconstitution of components R middle cerebral and R anterior cerebral with peripheral truncation. INR: 2.0. Initially BP 186/131 down to 155/71 without tx. Pt denies surgical hx. Physical Exam (per Admitting): General Appearance: WD/WN, no apparent distress Head: normocephalic, atraumatic Eyes: normal inspection, PERRL, EOMI, sclerae normal ENT: hearing grossly normal, pharynx normal, + pertinent finding (moist mucous membranes) Neck: supple, no JVD, trachea midline, + pertinent finding (no carotid bruit noted, right carotid without heart sounds noted) Respiratory/Chest: chest non-tender, lungs clear, normal breath sounds, no respiratory distress, no accessory muscle use Cardiovascular: no edema, no murmur, normal peripheral pulses, + bradycardia (50's) Abdomen/GI: normal bowel sounds, non tender, soft Extremities/Musculoskelatal: normal inspection, normal capillary refill, no pedal edema, normal range of motion, non-tender Neurologic/Psych: alert, normal mood/affect, oriented x 3, + pertinent finding (no facial droop, normal speech. equal strength bilateral legs, left arm weakness noted, decreased track leader strength left hand, decreased rapid alternating movements with left hand/fingers, negative romberg) Hospital Course Stroke like symptoms Possible related to TIA Pt with hx acute CVA on 01/13/17, hospitalized in [facility] -01/27/17. CTA head showed complete occlusion at the proximal right ICA. Moderate noncalcified plaque within the proximal left subclavian artery resulting in 50- 60% focal stenosis. [facility] chart reviewed and the complete occlusion was present from the M[facility] of head at [facility] On coumadin, INR 2 and statin Aspirin adding No arrhythmia on tele monitor Allow permissive HTN continue PT/OT OK to discharge home from neurology standpoint Neurology Clinically improved significantly Follow up with neurology as an outpatient R INTERNAL CAROTID COMPLETE OCCLUSION: CTA NECK: Complete occlusion at the proximal right ICA. Moderate noncalcified plaque within the proximal left subclavian artery resulting in 50-60% focal stenosis. Case discussed with Dr. Vascular Dr. Sadler over the phone, recommended to continue coumadin and aspirin and follow up image in 6 months Vascular will see patient as an outpatient On Coumadin, Lipitor and Aspirin adding. INR 2 HTN Keep BP in the high side continue monitor BP DVT PROPHYLAXIS heparin SQ Full Code DISPOSITION Discharge home today Continue PT/OT Fall precaution Follow up with your new PCP (already has appt schedule) Follow up with Neurology ( already has follow up appt schedule) Follow up with Vascular ( PCP will put for the referral) Continue coag clinic Total time spent on discharge = 35 minutes This includes examination of the patient, discharge planning, medication reconciliation, and communication with other providers. Discharge Instructions Discharge Instructions Date of Service Feb 04, 2017. Admission Reason for Admission: Carotid Artery Occlusion,Cva,Hypertension Discharge Discharge Diagnosis / Problem: Strokes like symptoms Discharge Goals Goal(s): Decrease discomfort, Improve function, Improve disease control Activity Recommendations Activity Limitations: resume your previous activity . Instructions / Follow-Up Instructions / Follow-Up Follow up with your primary care provider (already has an appointment with physician Follow up with neurology follow up with vascular Dr. Sadler Continue PT/OT Follow up with the Coumadin clinic Current Hospital Diet Patient's current hospital diet: AHA Diet (Heart Healthy) Discharge Diet Recommended Diet: AHA Diet (Heart Healthy) Pending Studies Studies pending at discharge: no Laboratory Results Lipid Panel Test 02/04/17 07:07 Range/Units Triglycerides Level 85 0-150 mg/dl Cholesterol Level 106 0-200 mg/dl HDL Cholesterol 62 mg/dl Cholesterol/HDL Ratio 1.7 LDL Cholesterol, Calculated 27 mg/dl Medical Emergencies . Who to Call and When: Medical Emergencies: If at any time you feel your situation is an emergency, please call 911 immediately. . Non-Emergent Contact Non-Emergency issues call your: Primary Care Provider Call Non-Emergent contact if: you have any medication questions . . "Provider Documentation" section prepared by Blessing Bryant. . VTE Core Measure Inpt VTE Proph given/why not?: Enoxaparin (Lovenox)SQ, Warfarin (Coumadin)
--- NOTE | 2017-02-25 10:10 | Medical Consult ---
Consultation Note Date of Service Feb 25, 2017. Consultation Note Patient was discharged before being seen
== END 2017-02-04 15:45 | disposition home or self-care (01) | DRG 69 ==
LOC: C.EDB 14:05 → C.2T 15:51 → EDBEDREQ 15:56 → ENRESERV 15:58 → C.2T 16:53
PROVIDERS: ADMIT Hospitalist; ATTEND Internal Medicine
DX: G45.9 Transient cerebral ischemic attack, unspecified (principal); I69.354 Hemiplegia and hemiparesis following cerebral infarction affecting left non-dominant side; G83 Other paralytic syndromes; R47.1 Dysarthria and anarthria; G51.0 Bell's palsy; R29.700 NIHSS score 0; I65.21 Occlusion and stenosis of right carotid artery; I10 Essential (primary) hypertension; Z51.81 Encounter for therapeutic drug level monitoring; Z79.899 Other long term (current) drug therapy; Z87.891 Personal history of nicotine dependence; Z82.49 Family history of ischemic heart disease and other diseases of the circulatory system; Z83.3 Family history of diabetes mellitus

== ENCOUNTER 2017-07-25 12:07 | Inpatient (IN) | payer OTHER ==
[~2017-07-25] VITALS: Ht 172.7 cm; Wt 98.6 kg
[~2017-07-25 12:07] MED LIST: ASPI-320 PO; ATOR-26 PO; WARF7.5T4 PO
[2017-07-25] MEDS ORDERED: OPTIRAY 320 IV PRN (13:00)
--- NOTE | 2017-07-25 13:03 | EMERGENCY ROOM VISIT NOTE ---
History Report prepared by Viridiana: Nando Romano Under the Supervision of: Dr. Mervin Gandhi M.D. First contact with patient: 12:34 Chief Complaint: NECK PAIN Stated Complaint: EXTREME DISCOMFORT, BALANCE OFF, PREVIOUS STROKES History of Present Illness The patient is a 67 year old male who presents to the Emergency Room with complaints of constant back-sided neck stiffness beginning today. The patient states that he has an extensive history of neck problems. He notes that he used to see a chiropractor due to a slight curve in his neck. He reports that he fell in March of 2016, and dislocated his shoulder and tore his rotator cuff. He notes that he woke up this morning with a stiff and sore neck. He reports that he typically does exercises after he wakes up to loosen his neck muscles. The patient states that he did his stretches today, which provided no relief, prompting his visit to the emergency department. He also complains of SOB over the last few weeks, CP, left arm weakness that is chronic, worsening balance, and occasional leg weakness. He notes that his neck pain worsens with movement. He denies any recent trauma and fever. He reports that he has had two strokes recently that affected his left side. The patient states that his current symptoms do not feel similar to his previous strokes. He notes that he takes Coumadin, Lisinopril, and a baby aspirin. Source of History: patient Onset: today Position: neck (back-sided) Quality: other (stiffness) Timing: constant Modifying Factors (Worsening): movement Associated Symptoms: + chest pain, + SOB, + weakness (left arm, left leg), No fevers Note: The patient also complains of worsening balance. Review of Systems See HPI for pertinent positives & negatives. A total of 10 systems reviewed and were otherwise negative. Past Medical & Surgical Medical Problems: (1) Carotid artery dissection (2) CVA (cerebral vascular accident) (3) Hypertension (4) Rotator cuff tear (5) Shoulder dislocation Family History Diabetes mellitus FATHER FH: hyperlipidemia FATHER Heart disease FATHER Hypertension FATHER Social History Smoking Status: Former Smoker Alcohol Use: none Drug Use: none Marital Status: single Housing Status: lives with family Occupation Status: retired Current/Historical Medications Scheduled Aspirin (Aspirin EC Low Dose), 81 MG PO QAM Atorvastatin (Lipitor), 80 MG PO QPM Warfarin Sod (Jantoven), 7.5 MG PO QPM Allergies Coded Allergies: Penicillins (Unverified Allergy, Mild, RASH, 07/25/17) Physical Exam Vital Signs Date Time Temp Pulse Resp B/P (MAP) Pulse Ox O2 Delivery O2 Flow Rate FiO2 07/25/17 15:27 80 16 119/74 98 Room Air 07/25/17 15:25 98 Room Air 07/25/17 14:05 84 20 171/98 97 Room Air 07/25/17 13:28 84 20 159/108 97 Room Air 07/25/17 12:55 Room Air 07/25/17 12:39 84 07/25/17 12:22 36.7 79 20 165/103 97 Room Air Physical Exam GENERAL: Patient is in no acute distress. HEENT: No acute trauma, normocephalic atraumatic, mucous membranes moist, no nasal congestion, no scleral icterus. NECK: No stridor, no adenopathy, no meningismus, trachea is midline. LUNGS: Clear to auscultation bilaterally, no wheeze, no rhonchi, breath sounds equal. HEART: Without murmurs gallops or rubs, regular rate and rhythm. ABDOMEN: Soft, nontender, bowel sounds positive, no hernias, no peritonitis. EXTREMITIES: No cyanosis, full range of motion of all the joints without pain or difficulty, no signs for acute trauma, mild bilateral pedal edema. NEUROLOGIC: Awake, alert, no speech slur, left facial droop, left upper extremity and left lower extremity have some slight cerebellar dysfunction and very subtle drifting. SKIN: No rash, no jaundice, no diaphoresis. Medical Decision & Procedures ER Provider Diagnostic Interpretation: Radiology results as stated below per my review and radiologist interpretation: HEAD CT NONCONTRAST Findings: Mild mucosal thickening within the right maxillary sinus with a small retention cyst. The mastoid air cells are clear. The calvarium and skull base are intact. There is no mass, hematoma, midline shift. Scattered areas of encephalomalacia within the right MCA territory consistent with old infarcts. This is not significantly change. No acute infarcts identified. Impression: No change in the old right MCA territory infarcts. No acute intracranial abnormality. Electronically signed by: Deion Florian M.D. 07/25/2017 1:21 PM CHEST ONE VIEW PORTABLE FINDINGS: The lungs are clear. Cardiac silhouette is normal in size. No pleural effusions. No pneumothorax. Mildly tortuous thoracic aorta, unchanged. IMPRESSION: No significant change compared to the prior study. No acute process. Electronically signed by: Deion Florian M.D. 07/25/2017 1:48 PM NECK CTA FINDINGS: Moderate mucosal thickening within the floor the right maxillary sinus. There is a periapical lucency within a right upper molar. This may extend into the floor the right maxillary sinus. Additional periodontal disease is also identified. There is a 1.5 cm cystic focus within the apex of the mandible which could represent an odontogenic cyst or periapical lucency. The aortic arch is normal in caliber. Noncalcified atherosclerotic plaque within the proximal left subclavian artery resulting in up to 75 % focal stenosis. This has progressed in the interval. Slightly hypoplastic right vertebral artery. Mild focal narrowing within the mid right vertebral artery likely due to compression from the osteophytes at the C4-C5 level. This remains unchanged. Otherwise, the vertebral arteries are patent. Bilateral common arteries are patent. Mild calcified plaque within the bilateral carotid bifurcations. Chronic occlusion of the right internal carotid artery is again noted. The left cervical internal carotid artery is widely patent. IMPRESSION: 1. Chronic occlusion of the right internal carotid artery, unchanged. 2. Slight progression of the 75% stenosis within the proximal left subclavian artery. 3. Mild narrowing within the mid right vertebral artery likely due to compression from the adjacent cervical spine osteophytes. This also remains unchanged. 4. A 1.5 cm cystic focus at the apex of the mandible which could represent and an odontogenic cyst or periapical lucency. 5. A periapical lucency within the right upper molar which may extend into the floor of the right maxillary sinus resulting in a moderate mucosal thickening. Electronically signed by: Deion Florian M.D. 07/25/2017 2:25 PM HEAD CTA FINDINGS: Chronic occlusion of the right internal carotid artery is again noted. There is associated diminished perfusion and tapering of the mid to distal right MCA branches. This is similar to the prior study. Moderate narrowing of approximately 60-70% of the distal left ICA is again noted. This remains unchanged. The left MCA, bilateral ACAs, and bilateral ACAs appear patent. The basilar artery and distal vertebral arteries are also patent. Old right MCA territory infarcts are again noted. No acute hemorrhage identified. Moderate mucosal thickening within the right maxillary sinus. IMPRESSION: 1. Overall, no significant change compared to the prior study. 2. Chronic occlusion of the right internal carotid artery with diminished perfusion and tapering of the mid to distal right MCA branches. This corresponds to the old right MCA territory infarcts. 3. No new areas of vascular occlusion identified. 4. Moderate focal stenosis within the distal left ICA of approximately 60-70%. Electronically signed by: Deion Florian M.D. 07/25/2017 2:17 PM Laboratory Results 07/25/17 12:45 Red Blood Count 4.96, Mean Corpuscular Volume 88.9, Mean Corpuscular Hemoglobin 30.2, Mean Corpuscular Hemoglobin Concent 34.0, Mean Platelet Volume 9.1, Neutrophils (%) (Auto) 79.7, Lymphocytes (%) (Auto) 11.3, Monocytes (%) (Auto) 7.9, Eosinophils (%) (Auto) 0.7, Basophils (%) (Auto) 0.2, Neutrophils # (Auto) 13.38, Lymphocytes # (Auto) 1.90, Monocytes # (Auto) 1.32, Eosinophils # (Auto) 0.11, Basophils # (Auto) 0.03 07/25/17 12:45 Test 07/25/17 12:45 07/25/17 13:16 07/25/17 14:46 White Blood Count 16.78 K/uL (4.8-10.8) Red Blood Count 4.96 M/uL (4.7-6.1) Hemoglobin 15.0 g/dL (14.0-18.0) Hematocrit 44.1 % (42-52) Mean Corpuscular Volume 88.9 fL (80-100) Mean Corpuscular Hemoglobin 30.2 pg (25-34) Mean Corpuscular Hemoglobin Concent 34.0 g/dl (32-36) Platelet Count 289 K/uL (130-400) Mean Platelet Volume 9.1 fL (7.4-10.4) Neutrophils (%) (Auto) 79.7 % Lymphocytes (%) (Auto) 11.3 % Monocytes (%) (Auto) 7.9 % Eosinophils (%) (Auto) 0.7 % Basophils (%) (Auto) 0.2 % Neutrophils # (Auto) 13.38 K/uL (1.4-6.5) Lymphocytes # (Auto) 1.90 K/uL (1.2-3.4) Monocytes # (Auto) 1.32 K/uL (0.11-0.59) Eosinophils # (Auto) 0.11 K/uL (0-0.5) Basophils # (Auto) 0.03 K/uL (0-0.2) RDW Standard Deviation 44.0 fL (36.4-46.3) RDW Coefficient of Variation 13.5 % (11.5-14.5) Immature Granulocyte % (Auto) 0.2 % Immature Granulocyte # (Auto) 0.04 K/uL (0.00-0.02) Erythrocyte Sedimentation Rate 22 mm/hr (0-14) Prothrombin Time 40.3 SECONDS (9.0-12.0) Prothromb Time International Ratio 3.9 (0.9-1.1) Activated Partial Thromboplast Time 36.5 SECONDS (21.0-31.0) Partial Thromboplastin Ratio 1.4 Anion Gap 5.0 mmol/L (3-11) Est Creatinine Clear Calc Drug Dose 100.6 ml/min Estimated GFR () 106.8 Estimated GFR (Non- 92.1 BUN/Creatinine Ratio 15.7 (10-20) Calcium Level 8.7 mg/dl (8.5-10.1) Magnesium Level 1.8 mg/dl (1.8-2.4) Total Bilirubin 0.6 mg/dl (0.2-1) Direct Bilirubin 0.1 mg/dl (0-0.2) Aspartate Amino Transf (AST/SGOT) 42 U/L (15-37) Alanine Aminotransferase (ALT/SGPT) 86 U/L (12-78) Alkaline Phosphatase 143 U/L (45-117) Total Creatine Kinase 154 U/L (39-308) Creatine Kinase MB 1.8 ng/ml (0.5-3.6) Creatine Kinase MB Ratio 1.2 (0-3.0) Troponin I < 0.015 ng/ml (0-0.045) C-Reactive Protein 0.38 mg/dl (0-0.29) Total Protein 7.8 gm/dl (6.4-8.2) Albumin 4.0 gm/dl (3.4-5.0) Bedside Prothrombin Time INR 3.8 (0.9-1.1) Urine Color YELLOW Urine Appearance CLEAR (CLEAR) Urine pH 6.0 (4.5-7.5) Urine Specific [place] > 1.045 (1.000-1.030) Urine Protein NEG (NEG) Urine Glucose (UA) NEG (NEG) Urine Ketones NEG (NEG) Urine Occult Blood 2+ (NEG) Urine Nitrite NEG (NEG) Urine Bilirubin NEG (NEG) Urine Urobilinogen NEG (NEG) Urine Leukocyte Esterase NEG (NEG) Urine WBC (Auto) 0 /hpf (0-5) Urine RBC (Auto) 5-10 /hpf (0-4) Urine Hyaline Casts (Auto) 0 /lpf (0-5) Urine Epithelial Cells (Auto) 0-5 /lpf (0-5) Urine Bacteria (Auto) NEG (NEG) Laboratory results reviewed by me. Medications Administered Medications (Trade) Dose Ordered Sig/Daniel Route Start Time Stop Time Status Last Admin Dose Admin Morphine Sulfate (MoRPHine SULFATE INJ) 4 mg NOW STAT IV 07/25/17 13:35 07/25/17 13:36 DC 07/25/17 13:40 4 MG Levofloxacin (Levaquin / D5W) 750 mg NOW STAT IV 07/25/17 14:40 07/25/17 14:42 DC 07/25/17 15:25 750 MG Lorazepam (Ativan Inj) 2 mg STK-MED ONCE .ROUTE 07/25/17 15:55 07/25/17 15:56 DC 07/25/17 15:55 0.5 MG Morphine Sulfate (MoRPHine SULFATE INJ) 2 mg STK-MED ONCE .ROUTE 07/25/17 16:01 07/25/17 16:02 DC 07/25/17 16:01 3 MG ECG Per My Interpretation Indication: SOB/dyspnea Rate (beats per minute): 81 Rhythm: normal sinus Findings: no ectopy, other (No ST elevation, no PVCs) ED Course 1234: The patient was evaluated in room C3. A complete history and physical exam was performed. 1335: Morphine Sulfate 4mg IV 1437: I reevaluated and updated the patient. He feels no better and is shaky. 1440: Levofloxacin 750mg IV 1450: Upon reexamination the patient is stable. I discussed results and treatment plan with the patient. He verbalizes agreement and understanding. I spoke with Dr. Pavon of the [facility]. We discussed the patient's results and findings. The patient will be evaluated by Dr. Pavon for further management. Medical Decision Differential diagnoses include: infection, electrolyte imbalance, anemia, CVA, TIA, intracranial bleeding, dehydration, and UTI. There is a moderate leukocytosis at 16,000, this is concerning for infection. No anemia. Sed rate and CRP are both slightly elevated No significant electrolyte abnormality or kidney failure. LFTs are mildly elevated. INR is elevated and consistent with his Coumadin use. Chest x-ray does not show pneumonia or CHF. Noncontrast brain CT shows no acute bleed or mass-effect, chronic findings were seen. CT of the brain and neck with contrast demonstrates chronic arterial narrowing and chronic findings. There was the suggestion of a dental infection with involvement of the sinus. Urinalysis does not show infection. Blood cultures are pending. EKG shows a sinus rhythm , no acute ischemia. Cardiac enzyme testing 1 is not consistent with acute cardiac injury. The patient received IV Levaquin as antibiotic coverage. He received IV morphine for his neck pain. The patient presents with increasing weakness, increased shakiness. He felt more off balance and has just not quite been himself. I am concerned for infection as the cause for the worsening of his situation. New stroke is possible but seems less likely. He is clearly out of the window for TPA. In addition, with his Coumadin, TPA is not indicated. I did speak with the patient and case management. The on-call hospitalist was consulted. Further workup and care is required. Medication Reconcilliation Current Medication List: was personally reviewed by me Blood Pressure Screening Patient's blood pressure: Elevated blood pressure Elevated blood pressure will be monitored by hospitalist. Consults Time Called: 1442 Consulting Physician: Dr. Pavon - [facility] Returned Call: 1450 Discussed the patient's case. The patient will be evaluated for further management. Impression Primary Impression: Stroke-like symptoms Additional Impressions: Weakness Neck pain Leukocytosis Scribe Attestation The scribe's documentation has been prepared under my direction and personally reviewed by me in its entirety. I confirm that the note above accurately reflects all work, treatment, procedures, and medical decision making performed by me. Departure Information Dispostion Being Evaluated By Hospitalist Referrals Leno Alexander M.D. (PCP) Patient Instructions My [facility] Stroke History Time Last Known Well Last night Stroke t-PA Criteria Reviewed Does NOT meet criteria for t-PA Reason t-PA Not Given Treatment not indicated Problem Qualifiers
[2017-07-25 13:06] LABS: HEMATOCRIT 44.1 % (42-52); MEAN CELL VOLUME 88.9 fL (80-100); MEAN CORPUSCULAR HEMOGLOBIN 30.2 pg (25-34); MEAN PLATELET VOLUME 9.1 fL (7.4-10.4); PLATELET COUNT 289 K/uL (130-400); RED CELL DISTRIBUTION WIDTH CV 13.5 % (11.5-14.5); WHITE BLOOD COUNT 16.78 K/uL (4.8-10.8)
[2017-07-25 13:20] LABS: PTT PATIENT 36.5 SECONDS (21.0-31.0)
--- NOTE | 2017-07-25 13:22 | DIAGNOSTIC IMAGING REPORT ---
HEAD CT NONCONTRAST CT DOSE: 687.98 mGy.cm HISTORY: Stroke symptoms. TECHNIQUE: Multiaxial CT images of the head were performed without the use of intravenous contrast. Automated exposure control was utilized for this study. A dose lowering technique was utilized adhering to the principles of ALARA. Comparison: Head CTA 02/03/2017. Findings: Mild mucosal thickening within the right maxillary sinus with a small retention cyst. The mastoid air cells are clear. The calvarium and skull base are intact. There is no mass, hematoma, midline shift. Scattered areas of encephalomalacia within the right MCA territory consistent with old infarcts. This is not significantly change. No acute infarcts identified. Impression: No change in the old right MCA territory infarcts. No acute intracranial abnormality. Electronically signed by: Deion Florian M.D. 07/25/2017 1:21 PM Dictated Date/Time: 07/25/2017 1:17 PM
[2017-07-25 13:26] LABS: ALT/SGPT 86 U/L (12-78); AST/SGOT 42 U/L (15-37); BLOOD UREA NITROGEN 13 mg/dl (7-18); CALCIUM 8.7 mg/dl (8.5-10.1); CARBON DIOXIDE 29 mmol/L (21-32); CREATININE 0.82 mg/dl (0.60-1.40); GLUCOSE 90 mg/dl (70-99); INR 3.9 (0.9-1.1); POTASSIUM 4.2 mmol/L (3.5-5.1); SODIUM 139 mmol/L (136-145)
[2017-07-25 13:30] LABS: BASO % 0.2 %; BASO ABS # 0.03 K/uL (0-0.2); EOS % 0.7 %; EOS ABS # 0.11 K/uL (0-0.5); IG# 0.04 K/uL (0.00-0.02); LYMPH % 11.3 %; MONO % 7.9 %; MONO ABS # 1.32 K/uL (0.11-0.59); NEUT % 79.7 %; NEUT ABS # 13.38 K/uL (1.4-6.5)
[2017-07-25 13:31] LABS: ALKALINE PHOSPHATASE 143 U/L (45-117); CKMB 1.8 ng/ml (0.5-3.6); TOTAL PROTEIN 7.8 gm/dl (6.4-8.2)
[2017-07-25] MEDS ORDERED: MoRPHine SULFATE 4 MG/ML 1 ML CARP\\VIAL IV STA (13:35)
--- NOTE | 2017-07-25 13:49 | DIAGNOSTIC IMAGING REPORT ---
CHEST ONE VIEW PORTABLE HISTORY: Stroke symptoms. COMPARISON: Chest 02/03/2017. FINDINGS: The lungs are clear. Cardiac silhouette is normal in size. No pleural effusions. No pneumothorax. Mildly tortuous thoracic aorta, unchanged. IMPRESSION: No significant change compared to the prior study. No acute process. Electronically signed by: Deion Florian M.D. 07/25/2017 1:48 PM Dictated Date/Time: 07/25/2017 1:47 PM
--- NOTE | 2017-07-25 14:18 | DIAGNOSTIC IMAGING REPORT ---
HEAD CTA HISTORY: Stroke symptoms. TECHNIQUE: Multiaxial CT images of the head were performed both following the intravenous administration of contrast to evaluate the major cerebral vessels. Maximum intensity projection images were also obtained. A dose lowering technique was utilized adhering to the principles of ALARA. COMPARISON: Head CTA 02/03/2017. FINDINGS: Chronic occlusion of the right internal carotid artery is again noted. There is associated diminished perfusion and tapering of the mid to distal right MCA branches. This is similar to the prior study. Moderate narrowing of approximately 60-70% of the distal left ICA is again noted. This remains unchanged. The left MCA, bilateral ACAs, and bilateral ACAs appear patent. The basilar artery and distal vertebral arteries are also patent. Old right MCA territory infarcts are again noted. No acute hemorrhage identified. Moderate mucosal thickening within the right maxillary sinus. IMPRESSION: 1. Overall, no significant change compared to the prior study. 2. Chronic occlusion of the right internal carotid artery with diminished perfusion and tapering of the mid to distal right MCA branches. This corresponds to the old right MCA territory infarcts. 3. No new areas of vascular occlusion identified. 4. Moderate focal stenosis within the distal left ICA of approximately 60-70%. Electronically signed by: Deion Florian M.D. 07/25/2017 2:17 PM Dictated Date/Time: 07/25/2017 2:11 PM
--- NOTE | 2017-07-25 14:26 | DIAGNOSTIC IMAGING REPORT ---
NECK CTA HISTORY: Stroke symptoms. TECHNIQUE: Multiaxial CT images of the neck were performed following the intravenous administration of contrast to evaluate the major cervical vessels. Maximum intensity projection images were also obtained. All measurements were calculated based on NASCET criteria. A dose lowering technique was utilized adhering to the principles of ALARA. COMPARISON STUDY: Neck CTA 02/01/2017. FINDINGS: Moderate mucosal thickening within the floor the right maxillary sinus. There is a periapical lucency within a right upper molar. This may extend into the floor the right maxillary sinus. Additional periodontal disease is also identified. There is a 1.5 cm cystic focus within the apex of the mandible which could represent an odontogenic cyst or periapical lucency. The aortic arch is normal in caliber. Noncalcified atherosclerotic plaque within the proximal left subclavian artery resulting in up to 75 % focal stenosis. This has progressed in the interval. Slightly hypoplastic right vertebral artery. Mild focal narrowing within the mid right vertebral artery likely due to compression from the osteophytes at the C4-C5 level. This remains unchanged. Otherwise, the vertebral arteries are patent. Bilateral common arteries are patent. Mild calcified plaque within the bilateral carotid bifurcations. Chronic occlusion of the right internal carotid artery is again noted. The left cervical internal carotid artery is widely patent. IMPRESSION: 1. Chronic occlusion of the right internal carotid artery, unchanged. 2. Slight progression of the 75% stenosis within the proximal left subclavian artery. 3. Mild narrowing within the mid right vertebral artery likely due to compression from the adjacent cervical spine osteophytes. This also remains unchanged. 4. A 1.5 cm cystic focus at the apex of the mandible which could represent and an odontogenic cyst or periapical lucency. 5. A periapical lucency within the right upper molar which may extend into the floor of the right maxillary sinus resulting in a moderate mucosal thickening. Electronically signed by: Deion Florian M.D. 07/25/2017 2:25 PM Dictated Date/Time: 07/25/2017 2:17 PM
[2017-07-25] MEDS ORDERED: LEVAQUIN 750MG / 150ML D5W IV STA (14:40)
[2017-07-25 15:25] VITALS: O2SAT 98; Ht 172.7 cm; Wt 98.6 kg
[2017-07-25] MEDS ORDERED: NITROGLYCERIN 0.4 MG SL PER TAB CHARGE SL PRN (15:30)
[2017-07-25] MEDS ORDERED: ONDANSETRON INJ 2 MG/ML 2 ML VIAL IV PRN (15:30)
[2017-07-25] MEDS ORDERED: PHARMACIST DISCHARGE MED REC CONSULT PRN (15:30)
[2017-07-25] MEDS ORDERED: LORAZEPAM 2 MG/ML 1 ML VIAL IV PRN (15:30)
[2017-07-25] MEDS ORDERED: LORAZEPAM 2 MG/ML 1 ML VIAL ONE (15:55)
[2017-07-25] MEDS ORDERED: MoRPHine SULFATE 4 MG/ML 1 ML CARP\\VIAL IV PRN (16:00)
[2017-07-25] MEDS ORDERED: MoRPHine SULFATE 2 MG/ML CARP ONE (16:01)
--- NOTE | 2017-07-25 16:55 | DIAGNOSTIC IMAGING REPORT ---
ORBIT RADIOGRAPHS 3 VIEWS HISTORY: pre-MRI screening. COMPARISON: None. FINDINGS: There are no radiopaque foreign bodies identified within the orbits. IMPRESSION: No radiopaque foreign bodies identified within the orbits. Electronically signed by: Deion Florian M.D. 07/25/2017 4:54 PM Dictated Date/Time: 07/25/2017 4:53 PM
[2017-07-25] MEDS: ACETAMINOPHEN 325 MG TAB PO PRN ×2 (17:08→21:51)
[2017-07-25 17:12] VITALS: BP 138/89; PULSE 85; TEMP 37; O2SAT 95
--- NOTE | 2017-07-25 17:21 | HISTORY & PHYSICAL EXAMINATION ---
DATE OF ADMISSION: 07/25/2017 CHIEF COMPLAINT: Severe neck pain and thinks he may have a slight left facial droop. HISTORY OF PRESENT ILLNESS: This is a 67-year-old male with a past medical history significant for carotid artery dissection, CVA on 01/13/2017 and was admitted to the [facility] and residual Left sided weakness more in upper extremity, history of hypertension, but not on any medications, presents with severe neck pain starting today morning around 9am to 10am. At that time, he also had some left facial droop as per him he noticed this during prior stroke and because of this also and ongoing severe neck pain, came to the ER. The daughter noticed the symptoms around 10:30 a.m. today. The patient states with movement of his neck, he is getting a lot of stabbing pain, but denies any dizziness or spinning of the room. Denies any headaches, no blurred visions, no earache, no runny nose, no sore throat, no cough, no fever, no chills. No difficulty swallowing. No chest pain, no shortness of breath. No nausea, no vomiting, no abdominal pain. Normal bowel and bladder movements. No blood in the urine. No blood in the stools. No burning micturition. He gained about several pounds of weight since his stroke in January 2017. . He is supposed to follow with vascular surgery and neurology, but he did not follow up. He states he is not on any blood pressure medications. Currently resting comfortably, hemodynamically stable. Workup in the ER is so far unremarkable. ALLERGIES: No known drug allergies. PAST MEDICAL HISTORY: As mentioned above. PAST SURGICAL HISTORY: No past surgical history on file. MEDICATIONS AT HOME: The patient is on aspirin enteric-coated 81 mg p.o. daily, Lipitor 80 mg p.o. daily, Coumadin 15 mg on Tuesdays and and 7.5 mg on all other days as directed by Coumadin clinic. SOCIAL HISTORY: . Lives with his daughter. Former smoker. No alcohol use, no drug use. REVIEW OF SYSTEMS: As per HPI. Rest of the review of systems negative. PHYSICAL EXAMINATION: GENERAL: The patient is of moderate build, not in distress. VITAL SIGNS: Temperature 36.7, pulse 80, respiratory rate 16, blood pressure 171/98, oxygen 97% on room air. HEENT: No pallor, no icterus. Pupils equal, round, and reactive to light. NECK: No JVD, no neck masses, no carotid bruits. CARDIOVASCULAR SYSTEM: S1, S2 heard. Regular rate and rhythm. No murmur, no gallop. RESPIRATORY SYSTEM: Normal AP diameter. No sweats. No wheezing, no crackles. ABDOMEN: Soft, bowel sounds present. Nontender. No distention. CENTRAL NERVOUS SYSTEM: Mild weakness in the left external upper extremity. Mild left facial droop. Coordination of movements normal. No pronator drift. Decreased sensation in his left hand. [id number]-az-[id number] test normal. EXTREMITIES: No edema, no erythema. LABORATORIES: WBC 16.7, hemoglobin 15, hematocrit 44, platelets 289. ESR 22. PT 42.3, INR 3.9. Sodium 139, potassium 4.2, chloride 105, bicarb 29, BUN 13, creatinine 0.8, serum glucose 90, calcium 8.7, magnesium 1.8. Total bilirubin 0.6, direct bilirubin 0.1, AST 42, ALT 86, alkaline phosphatase 143. Total creatine kinase 154. C-reactive protein 0.38. Urinalysis positive for occult blood, but negative for leukocyte esterase or nitrite. Chest x-ray, no acute findings seen. CT of the head, no change in the old right MCA territory infarct, no acute intracranial abnormality. CT angiogram of the neck, chronic occlusion of the right internal carotid artery unchanged, slight progression of 75% stenosis within the proximal left subclavian artery, mild narrowing of the mid right vertebral artery, likely due to compression of the adjacent cervical spine osteophytes, this also remains unchanged, a 1.5 cm cystic focus at the apex of the mandible which could represent an odontogenic cyst or periapical lucency within the right upper molar which may extend into the floor of the right maxillary sinus moderate mucosal thickening. CTA of the head, over all no significant change compared to prior study. Chronic occlusion of the right internal carotid artery with diminished perfusion tapering of the [id number] right MCA branches , this corresponds to the old right MCA territory infarct, no new areas of vascular occlusion and slight moderate focal stenosis within the distal left ICA of approximately 60-70%. EKG, normal sinus rhythm, rate of 81. No acute ST changes seen. No significant change seen. ASSESSMENT AND PLAN: This is a 67-year-old male who presents with severe neck pain, and also some left facial droop. 1. Severe neck pain. New finding. CT of the head was negative. Pain control. We will do MRI of the neck and follow the results. 2. Possible CVA. The patient has a history of acute CVA on 01/13/2017 with right-sided MCA infarct and he also has areas of chronic occlusion of the right carotid artery and there is a slight progression of the subclavian artery stenosis within the proximal left subclavian artery. We will continue his home aspirin and Coumadin,.(he had carotid dissection during previous stroke) We will check the MRI of the head, consult neurology, and also consult vascular surgery for his left subclavian artery stenosis. We will monitor on tele floor with stroke protocol. PT, OT, and speech evaluation. Neuro checks. 3. Leukocytosis. CAT scan of the head shows a periapical lucency with the right upper molar, possible dental infection. We will place him on clindamycin. Follow up with the dentist. 4. History of hyperlipidemia. Statin. Follow fasting lipid profile. 5. History of carotid dissection, on Coumadin. Follow the INR. 6. Hypertension, not on any medication. Monitor the blood pressure in the hospital. DISPOSITION: Admit to tele floor. PT and OT. Social service to help with discharge planning. LEVEL 1 FULL CODE. MTDD
[2017-07-25] MEDS: MoRPHine SULFATE 4 MG/ML 1 ML CARP\\VIAL IV PRN ×2 (18:19→21:52)
[2017-07-25 19:23] VITALS: BP 153/93; PULSE 84; TEMP 37.6; O2SAT 95
[2017-07-25] MEDS ORDERED: LORAZEPAM 2 MG/ML 1 ML VIAL IV ONE (20:30)
[2017-07-25] MEDS: CLINDAMYCIN HCL 150 MG CAP PO SCH (21:51)
[2017-07-25] MEDS: ATORVASTATIN 40 MG TAB PO SCH (21:51)
[2017-07-25 23:43] VITALS: BP 143/67; PULSE 104; TEMP 36.8; O2SAT 90
[2017-07-26] MEDS: MoRPHine SULFATE 4 MG/ML 1 ML CARP\\VIAL IV PRN ×3 (01:38→09:31)
[2017-07-26 03:43] VITALS: BP 135/93; PULSE 106; O2SAT 90
[2017-07-26 04:47] LABS: HEMATOCRIT 40.2 % (42-52); HEMOGLOBIN 13.6 g/dL (14.0-18.0); MEAN CELL VOLUME 88.7 fL (80-100); MEAN CORPUSCULAR HGB CONC 33.8 g/dl (32-36); MEAN PLATELET VOLUME 9.1 fL (7.4-10.4); PLATELET COUNT 286 K/uL (130-400); RED CELL DISTRIBUTION WIDTH CV 13.7 % (11.5-14.5); RED CELL DISTRIBUTION WIDTH SD 44.4 fL (36.4-46.3); WHITE BLOOD COUNT 20.26 K/uL (4.8-10.8)
[2017-07-26 04:56] LABS: INR 3.4 (0.9-1.1)
[2017-07-26 05:12] LABS: CALCIUM 8.5 mg/dl (8.5-10.1); CREATININE 0.94 mg/dl (0.60-1.40); POTASSIUM 4.1 mmol/L (3.5-5.1)
[2017-07-26 05:14] LABS: BASO % 0.1 %; BASO ABS # 0.02 K/uL (0-0.2); IG# 0.08 K/uL (0.00-0.02); LYMPH % 7.8 %; LYMPH ABS # 1.58 K/uL (1.2-3.4); MONO % 11.7 %; MONO ABS # 2.37 K/uL (0.11-0.59); NEUT ABS # 16.21 K/uL (1.4-6.5)
[2017-07-26 06:30] LABS: HEMOGLOBIN A1C 5.7 % (4.5-5.6)
[2017-07-26] MEDS ORDERED: VANCOMYCIN CONSULT ACTIVE PRN (07:15)
[2017-07-26] MEDS ORDERED: VANCOMYCIN IV 1,000 MG in SODIUM CHLORIDE 0.9% 250ML 250 ML IV SCH (07:15)
[2017-07-26] MEDS ORDERED: VANCOMYCIN IV 2,000 MG in SODIUM CHLORIDE 0.9% 500ML 500 ML IV ONE (07:30)
[2017-07-26 07:40] VITALS: BP 145/92; PULSE 91; TEMP 37.4; O2SAT 93
[2017-07-26] MEDS: ASPIRIN 81 MG ECTAB PO SCH (08:07)
[2017-07-26] MEDS: CLINDAMYCIN HCL 150 MG CAP PO SCH ×3 (08:07→20:41)
--- NOTE | 2017-07-26 08:59 | Pharmacy Progress Note ---
Pharmacy Antibiotic Consult Date of Service: July 26, 2017. Pharmacy Dosing Scope Pharmacy is consulted to initiate vancomycin IV dosing therapy, order appropriate labs and adjust drug dose/frequency. Subjective The patient is a 67 year old male admitted on July 25, 2017 at 15:30. Objective Height (Feet): 5 Height (Inches): 8.00 Weight (Kilograms): 98.000 Lab Results (24hrs): Test 07/25/17 12:45 07/25/17 13:16 07/25/17 14:46 07/26/17 04:21 White Blood Count 16.78 K/uL (4.8-10.8) 20.26 K/uL (4.8-10.8) Red Blood Count 4.96 M/uL (4.7-6.1) 4.53 M/uL (4.7-6.1) Hemoglobin 15.0 g/dL (14.0-18.0) 13.6 g/dL (14.0-18.0) Hematocrit 44.1 % (42-52) 40.2 % (42-52) Mean Corpuscular Volume 88.9 fL (80-100) 88.7 fL (80-100) Mean Corpuscular Hemoglobin 30.2 pg (25-34) 30.0 pg (25-34) Mean Corpuscular Hemoglobin Concent 34.0 g/dl (32-36) 33.8 g/dl (32-36) Platelet Count 289 K/uL (130-400) 286 K/uL (130-400) Mean Platelet Volume 9.1 fL (7.4-10.4) 9.1 fL (7.4-10.4) Neutrophils (%) (Auto) 79.7 % 80.0 % Lymphocytes (%) (Auto) 11.3 % 7.8 % Monocytes (%) (Auto) 7.9 % 11.7 % Eosinophils (%) (Auto) 0.7 % 0.0 % Basophils (%) (Auto) 0.2 % 0.1 % Neutrophils # (Auto) 13.38 K/uL (1.4-6.5) 16.21 K/uL (1.4-6.5) Lymphocytes # (Auto) 1.90 K/uL (1.2-3.4) 1.58 K/uL (1.2-3.4) Monocytes # (Auto) 1.32 K/uL (0.11-0.59) 2.37 K/uL (0.11-0.59) Eosinophils # (Auto) 0.11 K/uL (0-0.5) 0.00 K/uL (0-0.5) Basophils # (Auto) 0.03 K/uL (0-0.2) 0.02 K/uL (0-0.2) RDW Standard Deviation 44.0 fL (36.4-46.3) 44.4 fL (36.4-46.3) RDW Coefficient of Variation 13.5 % (11.5-14.5) 13.7 % (11.5-14.5) Immature Granulocyte % (Auto) 0.2 % 0.4 % Immature Granulocyte # (Auto) 0.04 K/uL (0.00-0.02) 0.08 K/uL (0.00-0.02) Erythrocyte Sedimentation Rate 22 mm/hr (0-14) Prothrombin Time 40.3 SECONDS (9.0-12.0) 35.1 SECONDS (9.0-12.0) Prothromb Time International Ratio 3.9 (0.9-1.1) 3.4 (0.9-1.1) Activated Partial Thromboplast Time 36.5 SECONDS (21.0-31.0) Partial Thromboplastin Ratio 1.4 Sodium Level 139 mmol/L (136-145) 136 mmol/L (136-145) Potassium Level 4.2 mmol/L (3.5-5.1) 4.1 mmol/L (3.5-5.1) Chloride Level 105 mmol/L (98-107) 102 mmol/L (98-107) Carbon Dioxide Level 29 mmol/L (21-32) 29 mmol/L (21-32) Anion Gap 5.0 mmol/L (3-11) 5.0 mmol/L (3-11) Blood Urea Nitrogen 13 mg/dl (7-18) 15 mg/dl (7-18) Creatinine 0.82 mg/dl (0.60-1.40) 0.94 mg/dl (0.60-1.40) Est Creatinine Clear Calc Drug Dose 100.6 ml/min 87.7 ml/min Estimated GFR () 106.8 97.5 Estimated GFR (Non- 92.1 84.2 BUN/Creatinine Ratio 15.7 (10-20) 16.1 (10-20) Random Glucose 90 mg/dl (70-99) 121 mg/dl (70-99) Calcium Level 8.7 mg/dl (8.5-10.1) 8.5 mg/dl (8.5-10.1) Magnesium Level 1.8 mg/dl (1.8-2.4) Total Bilirubin 0.6 mg/dl (0.2-1) Direct Bilirubin 0.1 mg/dl (0-0.2) Aspartate Amino Transf (AST/SGOT) 42 U/L (15-37) Alanine Aminotransferase (ALT/SGPT) 86 U/L (12-78) Alkaline Phosphatase 143 U/L (45-117) Total Creatine Kinase 154 U/L (39-308) Creatine Kinase MB 1.8 ng/ml (0.5-3.6) Creatine Kinase MB Ratio 1.2 (0-3.0) Troponin I < 0.015 ng/ml (0-0.045) C-Reactive Protein 0.38 mg/dl (0-0.29) Total Protein 7.8 gm/dl (6.4-8.2) Albumin 4.0 gm/dl (3.4-5.0) Hepatitis C Antibody Screen NEG (NEG) Bedside Prothrombin Time INR 3.8 (0.9-1.1) Urine Color YELLOW Urine Appearance CLEAR (CLEAR) Urine pH 6.0 (4.5-7.5) Urine Specific [place] > 1.045 (1.000-1.030) Urine Protein NEG (NEG) Urine Glucose (UA) NEG (NEG) Urine Ketones NEG (NEG) Urine Occult Blood 2+ (NEG) Urine Nitrite NEG (NEG) Urine Bilirubin NEG (NEG) Urine Urobilinogen NEG (NEG) Urine Leukocyte Esterase NEG (NEG) Urine WBC (Auto) 0 /hpf (0-5) Urine RBC (Auto) 5-10 /hpf (0-4) Urine Hyaline Casts (Auto) 0 /lpf (0-5) Urine Epithelial Cells (Auto) 0-5 /lpf (0-5) Urine Bacteria (Auto) NEG (NEG) Estimated Average Glucose 117 mg/dl Hemoglobin A1c 5.7 % (4.5-5.6) Triglycerides Level 67 mg/dl (0-150) Cholesterol Level 112 mg/dl (0-200) HDL Cholesterol 65 mg/dl LDL Cholesterol, Calculated 34 mg/dl VLDL Cholesterol, Calculated 13 mg/dl Cholesterol/HDL Ratio 1.7 Micro Results: Date/Time Source Procedure Growth Status 07/25/17 15:09 Blood Blood Culture - Preliminary Gram Positive Cocci Resulted 07/25/17 15:02 Blood Blood Culture - Preliminary Gram Positive Cocci Resulted Assessment & Plan Assessment: 67 yo w/ pmh including carotid dissection/prior cva presented with fever, leukocytosis, and possible CVA (facial droop) WBC 20.2/16, Tmax 37.6 Blood cultures currently 2/2 GPC Starting vancomycin for bacteremia Plan: Loading dose: 2000 mg (20 mg/kg) IV X 1 dose then: 1500 mg (15) IV every 12 hours. Goal trough level estimate: between 15 - 20 mcg/mL. Trough ordered for 07/28 @ 0530, prior to 4th dose. Pharmacy will continue to follow and will adjust dose/frequency as necessary. Thank you
--- NOTE | 2017-07-26 09:58 | Clinical Documentation Query ---
Dr. [facility] : CLINICAL DOCUMENTATION QUERY Patient is a 67 year old male admitted for evaluation of neck pain. 2/2 blood cultures positive on admission for gram positive cocci. Leukocytosis noted on admission. Documentation included "CAT scan of the head shows a periapical lucency with the right upper molar, possible dental infection. We will place him on clindamycin". Subsequent to this, Vancomycin has been ordered IV and ID consulted. As appropriate, consider documentation as suggested below as this impacts accurate DRG assignment. Thank you. In your clinical opinion is this patient being managed for: ( x ) Gram-positive bacteremia, POA ( ) Not Agree ( ) Other explanation of clinical findings (Please Explain. If no explanation given, this would be considered a no response.) ( ) Unable to determine ( ) Need to Discuss (Please call CDS via extension or qliq. If no interaction occurs this is considered a no response.) possibly The medical record reflects the following clinical findings, treatment, and risk factors. Clinical Indicators: As above Treatment: Clindamycin, Vancomycin, blood cultures, ID consultation Risk Factors: Possible dental infection. Please clarify and document your clinical opinion in the progress notes and discharge summary. Terms such as "probable", "suspected", "likely", "questionable", "possible", or "still to be ruled out" are acceptable. IF IN AGREEMENT, YOU MUST DOCUMENT ABOVE DIAGNOSTIC STATEMENT IN DAILY PROGRESS NOTES AND DISCHARGE SUMMARY. This document is not part of the patient's record. Thank You, Dawood Barajas, RN [phone]
--- NOTE | 2017-07-26 10:52 | Surgery Consultation ---
Consultation Date of Service July 26, 2017. Chief Complaint hx carotid dissection, L subclavian art stenosis History of Present Illness The patient is a 67 year old male with medical hx significant for R ICA dissection with CVA and R ICA occlusion since 01/2017, admitted with severe neck pain and apparent worsening of L facial and arm weakness, seen in consultation today for L subclavian art stenosis noted on imaging. Pt currently medicated and unable to provide reliable hx, although is oriented. Daughter in room, states she noted worse facial droop yesterday and L arm weakness, so brought him to [facility] for eval. Neck pain was severe, pt describes as sharp/stabbing pain and states it radiates to BL shoulders. Pain worse with neck and shoulder/arm movement. Feels his neck is "stiff." Pt very uncomfortable and restless. Has been unable to have his MRI of head/neck performed d/t inability to lie still as well as severe claustrophobia. Denies L arm claudication or pervasive dizziness/vertigo. Denies ARROYO, fever, chills, chest pain, SOB, abd pain, N/V, rest pain, claudication, other complaints. CTA imaging demonstrates no significant changes from previous, noted R ICA occlusion. L subclavian stenosis of 70% noted. Vitals Vital Signs Past 12 Hours Date Time Temp Pulse Resp B/P (MAP) Pulse Ox O2 Delivery O2 Flow Rate FiO2 07/26/17 07:40 37.4 91 19 145/92 (109) 93 Room Air 07/26/17 04:00 Room Air 07/26/17 03:43 106 19 135/93 (107) 90 Room Air 07/26/17 00:02 Room Air 07/25/17 23:43 36.8 104 20 143/67 (92) 90 Room Air Allergies Coded Allergies: Penicillins (Unverified Allergy, Mild, RASH, 07/25/17) Home Medications Scheduled Aspirin (Aspirin EC Low Dose), 81 MG PO QAM Atorvastatin (Lipitor), 80 MG PO QPM Warfarin Sod (Jantoven), 7.5 MG PO QPM Problem List Medical Problems: (1) Carotid artery dissection (2) CVA (cerebral vascular accident) (3) Hypertension (4) Rotator cuff tear (5) Shoulder dislocation Surgical / Medical History Hx Cardiac Surgery: No Hx Abdominal Surgery: No Hx Cancer Surgery: No Hx Thoracic Surgery: No Hx Orthopedic: Yes (bilateral hand surgery, 1980s) Hx Urinary Tract Surgery: No HX Other Surgery: No Past Medical/Surgical History: CVA/TIA, High Cholesterol Family History Diabetes mellitus FATHER FH: hyperlipidemia FATHER Heart disease FATHER Hypertension FATHER Social History Smoking Status: Former Smoker Hx Tobacco Use In Past Year?: Yes Hx Alcohol Use - Type & Amnt: No Hx Substance Use -Type & Amnt: No Review of Systems Constitutional: No chills, No fever, No malaise Skin: No change in color Eyes: No visual changes ENMT: No sore throat Respiratory: No cough, No BAILEY Cardiovascular: No chest pain, No palpitations Gastrointestinal: No abdominal pain, No nausea, No vomiting Musculoskeletal: + neck pain Neurologic: No dizziness, No headache, No numbness, No tingling Physical Exam Constitutional: General Apperance: well-nourished, well-developed Level of Distress: mild distress (appears uncomfortable), chronically ill ( mildly) Psychiatric: Mental Status: abnormal affect, agitated Orientation: oriented except where noted, to time, to place, to person Memory: recent memory normal (but vague), remote memory normal Head: normocephalic, atraumatic Eyes: EOM: EOMI ENMT: normal ENT inspection, hearing grossly normal Neck: supple, trachea midline Lungs: Respiratory effort: no dyspnea Auscultation: no rales/crackles, no rhonchi, decreased breath sounds Cardiovascular: Apical Impulse: not displaced Heart Auscultation: RRR, no rubs, no gallops Peripheral Pulses: Pulses: full and equal, in all extremities except if noted Bruits: none appreciated Carotid Pulse: normal on the left, normal on the right Brachial Pulses: normal on the left, normal on the right Radial Pulse: normal on the left, normal on the right Femoral Pulse: normal on the left, normal on the right Posterior Tibialis Pulse: decreased on the left, decreased on the right Dorsalis Pedis Pulse: decreased on the left, decreased on the right Abdomen: Bowel Sounds: normal Inspection & Palpation: soft, non-distended (secondary to body habitus), no tenderness, guarding & rebound, distended Musculoskeletal: normal tone, pertinent finding (L arm strength 4/5) Extremities: Upper Right: no cyanosis, no edema, no varicosities Upper Left: no cyanosis, no edema, no varicosities Lower Right: no cyanosis, no edema, no varicosities Lower Left: no cyanosis, no edema, no varicosities Neurologic: Cranial Nerves: pertinent finding (L facial droop noted) Assessment and Plan ASSESSMENT and PLAN: L subclavian art stenosis Hx R carotid dissection, CVA, and R ICA occlusion Neck pain Pt imaging reviewed by and pt discussed with Dr Sadler, imaging appears similar to previous. Pt asymptomatic from L subclavian art stenosis, no vascular surgical intervention recommended at this time. D/T L subclavian art stenosis, recommend BP be taken in RUE for accuracy; RN made aware. Cause of neck pain to be further eval by medicine. Will plan to see pt in office n 1 year with a carotid US at that time. Please call if needed.
--- NOTE | 2017-07-26 11:05 | Progress Note ---
Progress Note Date of Service July 26, 2017. Progress Note ID Consult Dictated #[id number] A/P: 1. Gram positive sepsis -Continue abx, follow cultures, repeat x 2 -MRI spine if able to tolerate, will need echo -will follow, thank you
[2017-07-26 11:29] VITALS: BP 167/102; PULSE 99; TEMP 38.6; O2SAT 91
--- NOTE | 2017-07-26 11:49 | INFECT. DISEASE CONSULTATION ---
DATE OF CONSULTATION: 07/26/2017 Infectious disease consult. HISTORY OF PRESENT ILLNESS: This is a 67-year-old gentleman who was admitted to the hospital after he developed severe neck pain yesterday which was sudden onset. His family is at the bedside and they provide the majority of his history. He did undergo a CT angiography yesterday as he did have a history of stroke in January of 2017, treated elsewhere. This did show chronic occlusion of the right internal carotid artery and left patent arteries. This was unchanged from a previous CTA in January of 2017. He was sent for an MRI; however, he was unable to tolerate this secondary to pain with lying flat and history of claustrophobia. His family states that they did attempt to give him although dose of Ativan, but he was still unable to tolerate the MRI. He did have a CAT scan of his head in the ER yesterday which showed old right MCA infarct, but no acute changes. A chest x-ray was also performed and was unremarkable. As part of his workup as he did have a temperature elevation of 36.7, blood cultures were obtained and are growing gram positive cocci in 2/2 sets. He denies any recent hospitalization. He denies any open wounds or trauma. He does have a history of dental disease but has not recently been to the dentist. His family states that he has had some tooth pain recently. He was started empirically on vancomycin this morning. He was given clindamycin overnight secondary to his history of likely dental disease. He did have an elevated white blood cell count yesterday of 16,000. This has increased to 20,000 today. His sed rate is elevated at 22. He is able to move his neck, but does admit to pain. He denies any radiation elsewhere. He denies any headache or photophobia. He has no chest pain, cough, shortness of breath, nausea, vomiting or diarrhea. His remaining review of systems is unremarkable. PAST MEDICAL HISTORY: Significant for coronary artery dissection, CVA in January of 2017, hypertension. PAST SURGICAL HISTORY: He has no surgical history. ALLERGIES: He has no known drug allergies. FAMILY HISTORY: Noncontributory. SOCIAL HISTORY: Significant for history of tobacco use. There is no history of alcohol or drug use. CURRENT MEDICATIONS: Vancomycin, Coumadin, aspirin, Lipitor, clindamycin, Tylenol, Zofran, Ativan, morphine. PHYSICAL EXAMINATION: VITAL SIGNS: He is currently afebrile, T-max is 37.6, pulse 91, respiratory rate 19, blood pressure 145/92, oxygen saturation is 93% on room air. GENERAL: He is awake and alert. He is in dneo-hc-agqolegn distress and moving uncomfortably in bed secondary to neck pain. NECK: He is able to move his neck without difficulty. There is no nuchal rigidity. HEENT: Extraocular muscles are intact. Mucous membranes are dry. HEART: Regular and tachycardic. I do not auscultate a murmur. LUNGS: Clear bilaterally. ABDOMEN: Soft and nondistended. EXTREMITIES: There is no lower extremity edema bilaterally. SKIN: Without rash. LABORATORY STUDIES: CBC today, white blood cell count 28.2, hemoglobin 13.6, platelets 286. Sed rate 22. Chemistry panel: Sodium 136, potassium 4.1, chloride 102, bicarbonate 29, BUN 15, creatinine 0.9, glucose 121. Hemoglobin A1c is 5.7. LFTs are mildly elevated with an AST of 42 and an ALT of 86 in the ER, CRP is 0.3. Urinalysis is unremarkable. Hep C antibody is negative. Blood cultures on the are growing gram positive cocci in 2/2 sets. Imaging is as above. ASSESSMENT AND PLAN: Gram-positive septicemia. He will remain on vancomycin and clindamycin as well. Repeat blood cultures will be obtained. Final recommendations will be made based on sensitivities. Certainly this could be result in neck pain; however, I would suggest MRI with sedation if he is able to tolerate this. Echocardiogram should be done as well. We will follow along with you. Thank you for this consultation.
--- NOTE | 2017-07-26 12:46 | ECHOCARDIOGRAM REPORT ---
*NOTICE TO RECEIVING [employer] [facility] This information is strictly Confidential and protected under [place] law. [place] law prohibits you from making any further disclosure of this information unless further disclosure is expressly permitted by the written consent of the person to whom it pertains or is authorized by law. A general authorization for the release of medical or other information is not sufficient for this purpose. Hospital accepts no responsibility if the information is made available to any other person, INCLUDING THE PATIENT. Interpretation Summary * Name: RANDA CHRISTIE Study Date: 07/26/2017 06:32 AM BP: 135/93 mmHg * Patient Location: [facility] HR: 98 * : 1950 (M/d/yyyy) Gender: Male Height: 68 in * Age: 67 yrs Ethnicity: [place] Weight: 216 lb * Ordering Physician: Chema Pavon * Referring Physician: Self, Referred * Performed By: Jennifer Garcia RCS * * Reason For Study: CVA * BSA: 2.1 m2 * -- Conclusions -- * The interatrial septum is intact with no evidence for an atrial septal defect. * Injection of contrast documented no interatrial shunt. * Left ventricular systolic function is normal. * Ejection Fraction = 55-60%. * The right ventricular systolic function is normal. * The left atrial size is normal. * Right atrial size is normal. * No significant valvular pathology. Procedure Details * A complete two-dimensional transthoracic echocardiogram was performed (2D, M-mode, Doppler and color flow Doppler). Left Ventricle * The left ventricle is normal in size. * There is normal left ventricular wall thickness. * Left ventricular systolic function is normal. * Ejection Fraction = 55-60%. Right Ventricle * The right ventricle is normal size. * The right ventricular systolic function is normal. Atria * The left atrial size is normal. * Right atrial size is normal. * The interatrial septum is intact with no evidence for an atrial septal defect. * Injection of contrast documented no interatrial shunt. Mitral Valve * The mitral valve anatomy is normal. * Significant mitral regurgitation is absent. Tricuspid Valve * The tricuspid valve anatomy is normal. * Significant tricuspid regurgitation is absent. Aortic Valve * The aortic valve is normal in structure and function. Pulmonic Valve * The pulmonic valve is not well visualized. Great Vessels * The aortic root and proximal ascending aorta are normal sized. Pericardium/Pleural * There is no pericardial effusion. MMode 2D Measurements and Calculations IVSd 1.3 cm IVSs 1.6 cm LVIDd 4.0 cm LVIDs 3.3 cm LVPWd 1.2 cm LVPWs 1.3 cm IVS/LVPW 1.1 FS 18.1 % EDV(Teich) 68.9 ml ESV(Teich) 42.7 ml EF(Teich) 38.0 % EDV(cubed) 62.7 ml ESV(cubed) 34.5 ml EF(cubed) 45.0 % % IVS thick 17.4 % % LVPW thick 8.9 % LV mass(C)d 178.0 grams LV mass(C)dI 84.3 grams/m\S\2 LV mass(C)s 163.6 grams LV mass(C)sI 77.5 grams/m\S\2 SV(Teich) 26.2 ml SI(Teich) 12.4 ml/m\S\2 SV(cubed) 28.2 ml SI(cubed) 13.4 ml/m\S\2 Ao root diam 3.1 cm Ao root area 7.6 cm\S\2 LA dimension 3.6 cm LA/Ao 1.2 LVOT diam 2.0 cm LVOT area 3.1 cm\S\2 LVAd ap4 31.8 cm\S\2 LVLd ap4 8.3 cm EDV(MOD-sp4) 97.9 ml EDV(sp4-el) 103.3 ml LVAs ap4 21.8 cm\S\2 LVLs ap4 7.5 cm ESV(MOD-sp4) 51.7 ml ESV(sp4-el) 54.2 ml EF(MOD-sp4) 47.2 % EF(sp4-el) 47.5 % LVAd ap2 31.7 cm\S\2 LVLd ap2 7.9 cm EDV(MOD-sp2) 101.7 ml EDV(sp2-el) 107.9 ml LVAs ap2 21.1 cm\S\2 LVLs ap2 6.8 cm ESV(MOD-sp2) 52.3 ml ESV(sp2-el) 55.3 ml EF(MOD-sp2) 48.6 % EF(sp2-el) 48.8 % LVLd %diff -5.50 % EDV(MOD-bp) 100.9 ml LVLs %diff -9.08 % ESV(MOD-bp) 53.8 ml EF(MOD-bp) 46.7 % SV(MOD-sp4) 46.2 ml SI(MOD-sp4) 21.9 ml/m\S\2 SV(MOD-sp2) 49.4 ml SI(MOD-sp2) 23.4 ml/m\S\2 SV(MOD-bp) 47.1 ml SI(MOD-bp) 22.3 ml/m\S\2 SV(sp4-el) 49.0 ml SI(sp4-el) 23.2 ml/m\S\2 SV(sp2-el) 52.6 ml SI(sp2-el) 24.9 ml/m\S\2 Doppler Measurements and Calculations MV E max valentín 85.2 cm/sec MV A max valentín 106.2 cm/sec MV E/A 0.80 MV P1/2t max valentín 90.6 cm/sec MV P1/2t 51.6 msec MVA(P1/2t) 4.3 cm\S\2 MV dec slope 513.7 cm/sec\S\2 MV dec time 0.23 sec TR max valentín 230.4 cm/sec
--- NOTE | 2017-07-26 13:32 | Neurology Consultation ---
Neurology Consultation Date of Consultation: July 26, 2017. Attending Physician: Chema Pavon MD Primary Care Physician: Leno Alexander M.D. Reason for Consultation: CVA? History of Present Illness Source: patient [place] male 67 years old with PMH HTN, carotid artery dissection, CVA on 2016. He presents with severe neck pain starting today morning and he has left weakness from his stroke in January 2017. He felt his left facial droop and weakness was worse. He has chronic neck pain but it was severe this am. His daughter noticed the symptoms around 10:30 am. He was getting alot of stabbing pain movement of his neck. Some weakness and on the left side is from his previous stroke. He was told to follow up with vascular surgery and neurology but he never did. He takes no blood pressure medications. denies falls , CP, SOB, abdominal pain, N, V, swallowing difficulty, bowel or bladder issues. Past Medical/Surgical History Medical Problems: (1) Carotid artery occlusion Status: Acute (2) CVA (cerebral vascular accident) Status: Acute (3) Leukocytosis Status: Acute (4) Neck pain Status: Acute (5) Stroke-like symptoms Status: Acute (6) Weakness Status: Acute Social History Drug Use: none Marital Status: single Housing Status: lives with family Occupation Status: retired Allergies Coded Allergies: Penicillins (Unverified Allergy, Mild, RASH, 07/25/17) Current Inpatient Medications Current Inpatient Medications Medications (Trade) Dose Ordered Sig/Daniel Route Start Time Stop Time Status Last Admin Dose Admin Ioversol (Optiray 320) 100 ml UD PRN IV 07/25/17 13:00 07/29/17 12:59 Miscellaneous Information (Pharmacist Discharge Med Rec Consult) 1 ea UD PRN N/A 07/25/17 15:30 08/24/17 15:29 Acetaminophen (Tylenol Tab) 650 mg Q4H PRN PO 07/25/17 15:30 08/24/17 15:29 07/25/17 21:51 650 MG Ondansetron HCl (Zofran Inj) 4 mg Q6H PRN IV 07/25/17 15:30 08/24/17 15:29 Nitroglycerin (Nitrostat Tab) 0.4 mg UD PRN SL 07/25/17 15:30 08/24/17 15:29 Aspirin (Ecotrin Tab) 81 mg QAM PO 07/26/17 09:00 08/25/17 08:59 07/26/17 08:07 81 MG Atorvastatin Calcium (Lipitor Tab) 80 mg QPM PO 07/25/17 21:00 08/24/17 20:59 07/25/17 21:51 80 MG Warfarin Sodium (Coumadin Tab) 7.5 mg DAILY@1600 PO 07/26/17 16:00 08/25/17 15:59 Future Hold Lorazepam (Ativan Inj) 0.5 mg ONE PRN IV 07/25/17 15:30 08/24/17 15:29 07/25/17 23:24 0.5 MG Clindamycin HCl (Cleocin Cap) 600 mg TID PO 07/25/17 21:00 08/04/17 20:59 07/26/17 08:07 600 MG Miscellaneous Information (Consult) 1 ea UD PRN N/A 07/26/17 07:15 08/25/17 07:14 Vancomycin HCl 1500 mg/Sodium Chloride 530 ml @ 200 mls/hr Q12H IV 07/26/17 18:00 08/09/17 17:59 Hydromorphone HCl (Dilaudid Inj) 0.5 mg Q3HWA PRN IV 07/26/17 11:30 08/09/17 11:29 Oxycodone/ Acetaminophen (Percocet 5-325mg Tab) 1 tab Q4H PRN PO 07/26/17 11:30 08/09/17 11:29 Lidocaine (Lidoderm Patch 5%) 1 patch QAM TD 07/26/17 12:00 08/25/17 11:59 Miscellaneous (Remove Lidoderm Patch) 1 ea DAILY@21 N/A 07/26/17 21:00 08/25/17 20:59 Physical Exam Vital Signs (Past 24 Hrs): Date Time Temp Pulse Resp B/P (MAP) Pulse Ox O2 Delivery O2 Flow Rate FiO2 07/26/17 12:00 Room Air 07/26/17 11:29 38.6 99 20 167/102 (123) 91 Room Air 07/26/17 08:00 Room Air 07/26/17 07:40 37.4 91 19 145/92 (109) 93 Room Air 07/26/17 04:00 Room Air 07/26/17 03:43 106 19 135/93 (107) 90 Room Air 07/26/17 00:02 Room Air 07/25/17 23:43 36.8 104 20 143/67 (92) 90 Room Air 07/25/17 20:00 Room Air 07/25/17 19:23 37.6 84 18 153/93 (113) 95 Room Air 07/25/17 17:12 37.0 85 16 138/89 (105) 95 Room Air 07/25/17 15:27 80 16 119/74 98 Room Air 07/25/17 15:25 98 Room Air 07/25/17 14:05 84 20 171/98 97 Room Air 07/25/17 13:28 84 20 159/108 97 Room Air Physical Exam: Constitutional: appearance nourished, obese, very restless with pain in neck- stiff with manipulation Ears, Nose, Mouth and Throat: mucous membranes moist, no injection and skin normal, eyes normal Cardiovascular: normal S-1 and S-2 and regular rate and rhythm Respiratory: clear to auscultation (CTA) and no rales, rhonchi or wheeze Musculoskeletal: no peripheral edema Skin: no stigmata of neurocutaneous disease noted and normal and intact Eyes: extraocular muscles intact (EOMI) and pupils equal, round and reactive to light (PERRL) NEUROLOGIC EXAMINATION: Mental status: Alert and interactive Oriented [facility], 2018, president Flynn Oriented to person Speech fluent with no evidence of aphasia Cranial Nerves smile slight flattening of nasolabial fold on left Reflexes: Deep tendon reflexes hyper reflexic LE with sustained clonus on the left Sensory: loss of sensation with vibration to mid [place], and GT proprioception loss Coordination: finger to nose with no bi pass Gait/Stance: Posture sitting in bed very restless, sits, laying down several times during evaluation Motor: Negative for pronator drift of out stretched arms with eyes closed. Strength: biceps triceps hand sample checker 4/5 left/ 5/5 right UE, hip flex left 4/5, right 5/5, patellar plantar flex ext 5/5 bilaterally Laboratory Results Past 24 Hours: 07/26/17 04:21 Red Blood Count 4.53, Mean Corpuscular Volume 88.7, Mean Corpuscular Hemoglobin 30.0, Mean Corpuscular Hemoglobin Concent 33.8, Mean Platelet Volume 9.1, Neutrophils (%) (Auto) 80.0, Lymphocytes (%) (Auto) 7.8, Monocytes (%) (Auto) 11.7, Eosinophils (%) (Auto) 0.0, Basophils (%) (Auto) 0.1, Neutrophils # (Auto ) 16.21, Lymphocytes # (Auto) 1.58, Monocytes # (Auto) 2.37, Eosinophils # (Auto ) 0.00, Basophils # (Auto) 0.02 07/26/17 04:21 Test 07/25/17 13:16 07/25/17 14:46 07/26/17 04:21 Bedside Prothrombin Time INR 3.8 (0.9-1.1) Urine Color YELLOW Urine Appearance CLEAR (CLEAR) Urine pH 6.0 (4.5-7.5) Urine Specific [place] > 1.045 (1.000-1.030) Urine Protein NEG (NEG) Urine Glucose (UA) NEG (NEG) Urine Ketones NEG (NEG) Urine Occult Blood 2+ (NEG) Urine Nitrite NEG (NEG) Urine Bilirubin NEG (NEG) Urine Urobilinogen NEG (NEG) Urine Leukocyte Esterase NEG (NEG) Urine WBC (Auto) 0 /hpf (0-5) Urine RBC (Auto) 5-10 /hpf (0-4) Urine Hyaline Casts (Auto) 0 /lpf (0-5) Urine Epithelial Cells (Auto) 0-5 /lpf (0-5) Urine Bacteria (Auto) NEG (NEG) White Blood Count 20.26 K/uL (4.8-10.8) Red Blood Count 4.53 M/uL (4.7-6.1) Hemoglobin 13.6 g/dL (14.0-18.0) Hematocrit 40.2 % (42-52) Mean Corpuscular Volume 88.7 fL (80-100) Mean Corpuscular Hemoglobin 30.0 pg (25-34) Mean Corpuscular Hemoglobin Concent 33.8 g/dl (32-36) Platelet Count 286 K/uL (130-400) Mean Platelet Volume 9.1 fL (7.4-10.4) Neutrophils (%) (Auto) 80.0 % Lymphocytes (%) (Auto) 7.8 % Monocytes (%) (Auto) 11.7 % Eosinophils (%) (Auto) 0.0 % Basophils (%) (Auto) 0.1 % Neutrophils # (Auto) 16.21 K/uL (1.4-6.5) Lymphocytes # (Auto) 1.58 K/uL (1.2-3.4) Monocytes # (Auto) 2.37 K/uL (0.11-0.59) Eosinophils # (Auto) 0.00 K/uL (0-0.5) Basophils # (Auto) 0.02 K/uL (0-0.2) RDW Standard Deviation 44.4 fL (36.4-46.3) RDW Coefficient of Variation 13.7 % (11.5-14.5) Immature Granulocyte % (Auto) 0.4 % Immature Granulocyte # (Auto) 0.08 K/uL (0.00-0.02) Prothrombin Time 35.1 SECONDS (9.0-12.0) Prothromb Time International Ratio 3.4 (0.9-1.1) Anion Gap 5.0 mmol/L (3-11) Est Creatinine Clear Calc Drug Dose 87.7 ml/min Estimated GFR () 97.5 Estimated GFR (Non- 84.2 BUN/Creatinine Ratio 16.1 (10-20) Estimated Average Glucose 117 mg/dl Hemoglobin A1c 5.7 % (4.5-5.6) Calcium Level 8.5 mg/dl (8.5-10.1) Triglycerides Level 67 mg/dl (0-150) Cholesterol Level 112 mg/dl (0-200) HDL Cholesterol 65 mg/dl LDL Cholesterol, Calculated 34 mg/dl VLDL Cholesterol, Calculated 13 mg/dl Cholesterol/HDL Ratio 1.[address] head- No change in the old right MCA territory infarcts. No acute intracranial abnormality. CTA neck- Chronic occlusion of the right internal carotid artery, unchanged. Slight progression of the 75% stenosis within the proximal left subclavian artery. Mild narrowing within the mid right vertebral artery likely due to compression from the adjacent cervical spine osteophytes. This also remains unchanged. A 1.5 cm cystic focus at the apex of the mandible which could represent and an odontogenic cyst or periapical lucency. A periapical lucency within the right upper molar which may extend into the floor of the right maxillary sinus resulting in a moderate mucosal thickening. CTA head- . Overall, no significant change compared to the prior study. Chronic occlusion of the right internal carotid artery with diminished perfusion and tapering of the mid to distal right MCA branches. This corresponds to the old right MCA territory infarcts. 3. No new areas of vascular occlusion identified. Moderate focal stenosis within the distal left ICA of approximately 60-70%. TTE- The interatrial septum is intact with no evidence for an atrial septal defect. * Injection of contrast documented no interatrial shunt. * Left ventricular systolic function is normal. * Ejection Fraction = 55-60%. * The right ventricular systolic function is normal. * The left atrial size is normal. * Right atrial size is normal. * No significant valvular pathology. 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 needs both MRI brain and c spine - urgent to have done- anaesthesia needed unable to sedate 2. sepsis -x 2 blood - ID for optimizing antibiotic treatment- elevated WBC, sed rate gram + cocci 3. patient states no falls but increased neck pain 4. fall precautions 5. optimize HTN, DL 6. if source is not found will need LP for possible meningitis 7. TTE with no ASD or valvular pathology ?? need for JAZZY 8. CT c spine with and without while waiting for MRI further recommendations to follow I have seen and discussed above patient with Dr Dora Vega, neurology Pt seen and examined. Severe R neck pain, query Lhermitte's with increased L facial droop and LUE weakness. No headache. POs BC, increased wbc, nml esr Exam no overt K[place]igs ,L facial droop, no change in vision, LUE best 3-3+/5 lowers fairly full. Spontaneous clonus LLE, bl upgoing toes. Imp cervical myelopathy, query infection, abscess v new central event, stroke , abscess. Bc MRI has not been able to be done bc of severe CT c spine with and without now. If the pt changes abruptly will need urgent MRI. My understanding is that pt is to have MRI brain, c spine with and without contrast. MERVAT Vega MD
[2017-07-26] MEDS: LIDODERM (LIDOCAINE) PATCH 5% TD SCH (13:39)
[2017-07-26] MEDS: OXYCODONE/ACETAMINOPHEN 5-325 TAB PO PRN ×2 (13:39→17:59)
[2017-07-26] MEDS: ACETAMINOPHEN 325 MG TAB PO PRN ×2 (13:40→19:26)
[2017-07-26] MEDS ORDERED: OPTIRAY 320 IV PRN (16:00)
[2017-07-26] MEDS ORDERED: WARFARIN SOD 7.5 MG TAB PO SCH (16:00)
[2017-07-26 16:08] VITALS: BP 124/73; PULSE 87; TEMP 37.3; O2SAT 92
[2017-07-26] MEDS: HYDROmorphone INJ 0.5 MG/0.5 ML SYR IV PRN ×2 (16:55→22:00)
[2017-07-26] MEDS: VANCOMYCIN IV 1,500 MG in SODIUM CHLORIDE 0.9% 500ML 500 ML IV SCH (18:01)
[2017-07-26] MEDS ORDERED: LORAZEPAM 2 MG/ML 1 ML VIAL IV STA (18:49)
--- NOTE | 2017-07-26 18:58 | DIAGNOSTIC IMAGING REPORT ---
CERVICAL SPINE WITH CLINICAL HISTORY: 67 years-old Male presenting with increased neck pain and sepsis. TECHNIQUE: Multidetector CT of the cervical spine was performed after the administration of intravenous contrast. IV contrast: 115 mL of Optiray 320. A dose lowering technique was used consistent with the principles of ALARA (as low as reasonably achievable). COMPARISON: CTA of the neck performed the previous day. CT DOSE (mGy.cm): The estimated cumulative dose is 969.89 mGy.cm. FINDINGS: [employer] Dies topogram: Unremarkable. Straightening of normal cervical lordosis likely positional and related to multilevel degenerative changes. Vertebral body heights maintained. Multilevel intervertebral disc height loss. Disc osteophyte complexes noted to varying degrees at every level. Posterior bony spurring most significant at C5-6. No acute fracture or subluxation. Disc osteophyte complexes/uncovertebral hypertrophy results in varying degrees of osseous neural foraminal narrowing at every level. Evaluation of the soft tissues demonstrates no evidence of a focal fluid collection or significant inflammatory change. Chronic occlusion of the right internal carotid artery is again noted. Evaluation of the soft tissues is degraded by motion artifact. Limited intracranial evaluation within normal limits. IMPRESSION: 1. Multilevel degenerative changes of the cervical spine with multilevel osseous neural foraminal narrowing and spinal canal stenosis most significant at C5-6. This is unchanged from the prior CT. No acute osseous injury allowing for motion artifact. 2. No evidence of inflammatory change or abscess within the visualized portion of the neck. Electronically signed by: Yehuda Hancock M.D. 07/26/2017 6:57 PM Dictated Date/Time: 07/26/2017 6:52 PM
--- NOTE | 2017-07-26 19:44 | Progress Note ---
Internal Med Progress Note Date of Service: July 26, 2017. Provider Documentation: SUBJECTIVE: patient complaining of severe pain in his neck was restless could not do MRI last night inspite of iv Ativan as patient was claustrophobic and restless received pain meds and Ativan for ct cervical spine today and currently sedated plan for MRI under anesthesia on Wednesday if not able to do today spiking temps today bacteremia with gm positive cocci hemodynamics ok OBJECTIVE: Vital Signs-as noted below Exam: General-was alert and awake and restless with pain. But currently sleeping ENT-Normal hearing Neck-painful neck movements Lungs-cta b/l no wheezing or crackles Heart-s1 and s2 heard regular no murmurs Abdomen-soft bowel sounds present non tender no distension Extremities-no edema no erythema Neuro-alert and awake. currently drowsy left sided weakness Lab data as noted below. ASSESSMENT & PLAN: This is a 67-year-old male who presents with severe neck pain, and also some left facial droop. 1. Severe neck pain. New finding. CT of the head was negative. Pain control. Ct cervical spine degenerative disease. Significant pain.Couldnot do MRI last night as patient was not able to do inspite of iv Ativan 1mg. Since currently sedated after another dose of Ativan and pain meds for ct cervical spine-planning to try MRI tonight.No nucha rigidity. 2. Possible CVA. The patient has a history of acute CVA on 01/13/2017 with right-sided MCA infarct and he also has areas of chronic occlusion of the right carotid artery and there is a slight progression of the subclavian artery stenosis within the proximal left subclavian artery. To continue his home aspirin and Coumadin,.(he had carotid dissection during previous stroke) . Appreciate vascular surgery inputs. Appreciate neurology inputs. IF cannot get MRI tonight plan to do under anesthesia on Wednesday. 3. Bacteremia mostly present on admission Leukocytosis. CAT scan of the head on admission shows a periapical lucency with the right upper molar, possible dental infection. started on clindamycin. But Today spiked temp and blood cx came back positive for gm positive cocci started on iv vancomycin ID consulted echo unremarkable. meningitis? but no obvious signs added Levaquin as still spiking temp( severe allergy to penicillins) . 4. History of hyperlipidemia. Statin. LDL 34. HDL 65 5. History of carotid dissection, on Coumadin. INR 3.4. Holding coumadin 6. Hypertension, not on any medication. Monitor the blood pressure in the hospital. DISPOSITION: Monitor in tele floor. PT and OT when stable . Social service to help with discharge planning. LEVEL 1 FULL CODE. Vital Signs: Date Time Temp Pulse Resp B/P (MAP) Pulse Ox O2 Delivery O2 Flow Rate FiO2 07/26/17 16:08 37.3 87 20 124/73 (90) 92 Room Air 07/26/17 16:00 Room Air 07/26/17 12:00 Room Air 07/26/17 11:29 38.6 99 20 167/102 (123) 91 Room Air 07/26/17 08:00 Room Air 07/26/17 07:40 37.4 91 19 145/92 (109) 93 Room Air 07/26/17 04:00 Room Air 07/26/17 03:43 106 19 135/93 (107) 90 Room Air 07/26/17 00:02 Room Air 07/25/17 23:43 36.8 104 20 143/67 (92) 90 Room Air 07/25/17 20:00 Room Air Lab Results: Results Past 24 Hours Test 07/26/17 04:21 Range/Units White Blood Count 20.26 4.8-10.8 K/uL Red Blood Count 4.53 4.7-6.1 M/uL Hemoglobin 13.6 14.0-18.0 g/dL Hematocrit 40.2 42-52 % Mean Corpuscular Volume 88.7 80-100 fL Mean Corpuscular Hemoglobin 30.0 25-34 pg Mean Corpuscular Hemoglobin Concent 33.8 32-36 g/dl Platelet Count 286 130-400 K/uL Mean Platelet Volume 9.1 7.4-10.4 fL Neutrophils (%) (Auto) 80.0 % Lymphocytes (%) (Auto) 7.8 % Monocytes (%) (Auto) 11.7 % Eosinophils (%) (Auto) 0.0 % Basophils (%) (Auto) 0.1 % Neutrophils # (Auto) 16.21 1.4-6.5 K/uL Lymphocytes # (Auto) 1.58 1.2-3.4 K/uL Monocytes # (Auto) 2.37 0.11-0.59 K/uL Eosinophils # (Auto) 0.00 0-0.5 K/uL Basophils # (Auto) 0.02 0-0.2 K/uL RDW Standard Deviation 44.4 36.4-46.3 fL RDW Coefficient of Variation 13.7 11.5-14.5 % Immature Granulocyte % (Auto) 0.4 % Immature Granulocyte # (Auto) 0.08 0.00-0.02 K/uL Prothrombin Time 35.1 9.0-12.0 SECONDS Prothromb Time International Ratio 3.4 0.9-1.1 Sodium Level 136 136-145 mmol/L Potassium Level 4.1 3.5-5.1 mmol/L Chloride Level 102 98-107 mmol/L Carbon Dioxide Level 29 21-32 mmol/L Anion Gap 5.0 3-11 mmol/L Blood Urea Nitrogen 15 7-18 mg/dl Creatinine 0.94 0.60-1.40 mg/dl Est Creatinine Clear Calc Drug Dose 87.7 ml/min Estimated GFR () 97.5 Estimated GFR (Non- 84.2 BUN/Creatinine Ratio 16.1 10-20 Random Glucose 121 70-99 mg/dl Estimated Average Glucose 117 mg/dl Hemoglobin A1c 5.7 4.5-5.6 % Calcium Level 8.5 8.5-10.1 mg/dl Triglycerides Level 67 0-150 mg/dl Cholesterol Level 112 0-200 mg/dl HDL Cholesterol 65 mg/dl LDL Cholesterol, Calculated 34 mg/dl VLDL Cholesterol, Calculated 13 mg/dl Cholesterol/HDL Ratio 1.7 Microbiology Results 07/26/17 Blood Culture, Received Pending 07/26/17 Blood Culture, Received Pending
[2017-07-26 19:57] VITALS: BP 176/80; PULSE 103; TEMP 39.5; O2SAT 91
[2017-07-26] MEDS: ATORVASTATIN 40 MG TAB PO SCH (20:41)
[2017-07-26] MEDS: SODIUM CHLORIDE 0.9% 1000ML 1,000 ML IV SCH (21:45)
[2017-07-26] MEDS: LEVOFLOXACIN / D5W 750 MG in PREMIXED IN D5W 150 ML IV SCH (21:46)
[2017-07-26 23:38] VITALS: BP 173/114; PULSE 107; TEMP 37.3; O2SAT 92
[2017-07-27] MEDS: OXYCODONE/ACETAMINOPHEN 5-325 TAB PO PRN ×5 (00:01→18:13)
--- NOTE | 2017-07-27 02:06 | PROGRESS NOTE ---
DATE: 07/26/2017 I have reviewed the patient's prior inpatient visit. He had been admitted to our facility in January of 2017 for an episode of worsening weakness on the left. My understanding was that he had been admitted to a hospital in [place] for what was thought to be a right carotid dissection and had been placed on Coumadin at that time for the carotid dissection. The duration of the treatment was not known to me, although Dr. Alberto did note in his consultation that he would likely have a repeat CTA in 2-3 months to see if recanalization occurs and if total occlusion and stable Coumadin could be stopped. On this background, I have reviewed the patient's current medications. The patient has been on Coumadin for the same but it has been held for mildly elevated INR. He is currently on levofloxacin, vancomycin, Lidoderm patch, Dilaudid, Percocet, aspirin, atorvastatin, clindamycin, Tylenol, Zofran, nitroglycerin, lorazepam p.r.n. I spoke to Dr. Pavon earlier this evening. Patient initially went down for CT of the cervical spine because of severe neck pain and fever. He needed to be premedicated with pain medication and was able to have this study. I am not able to open all of the images, but the report indicates that there are multilevel degenerative changes in the cervical spine with multilevel osseous neural foraminal narrowing and spinal canal stenosis most significant at C5-C6. No acute osseous injury allowing for motion artifact, no evidence of inflammatory change or abscess within the visualized portion of the neck. Dr. Pavon indicated to me that they would attempt to do an MRI later this evening with adequate pain medication since the patient was already sleepy from presedation for this evening's CT. In this setting, I agree that an MRI of the brain with and without contrast and an MRI of the cervical spine with and without contrast are very important. I would recommend if the aforementioned cannot be performed on Wednesday under conscious sedation with anesthesia, that the patient be transferred to a facility that can do so tomorrow. Additionally, if the patient declines neurologically, I would recommend urgent CT of the head and transfer to a tertiary care center where urgent MRI imaging with anesthesia could be done. I agree that Coumadin should be held at present, the patient is mildly supratherapeutic. In general, provided there is not another indication for anticoagulation besides the carotid occlusion vs right carotid dissection, recommend that anticoagulation with Coumadin be held and discontinued. Aspirin should be continued or started. If the etiology of the symptoms is not clear based on imaging and the source of the patient's infection remains unclear, the patient may need a lumbar puncture. I understand that infectious disease is covering the patient with empiric antiobiotic therapy based on preliminary microbiology and potential etiologies. Coverage appears to be reasonable for central nervous system coverage, but defer in that regard to infectious disease. We will follow with you. MORENOD
[2017-07-27] MEDS: HYDROmorphone INJ 0.5 MG/0.5 ML SYR IV PRN ×5 (02:11→18:13)
[2017-07-27 03:45] VITALS: BP 145/84; PULSE 105; TEMP 37; O2SAT 92
[2017-07-27 04:40] LABS: BASO % 0.1 %; BASO ABS # 0.02 K/uL (0-0.2); HEMATOCRIT 38.9 % (42-52); HEMOGLOBIN 13.4 g/dL (14.0-18.0); IG# 0.04 K/uL (0.00-0.02); LYMPH % 6.9 %; LYMPH ABS # 0.95 K/uL (1.2-3.4); MEAN CELL VOLUME 88.8 fL (80-100); MEAN CORPUSCULAR HEMOGLOBIN 30.6 pg (25-34); MEAN CORPUSCULAR HGB CONC 34.4 g/dl (32-36); MEAN PLATELET VOLUME 9.9 fL (7.4-10.4); MONO % 9.5 %; MONO ABS # 1.32 K/uL (0.11-0.59); NEUT % 83.2 %; PLATELET COUNT 257 K/uL (130-400); RED CELL DISTRIBUTION WIDTH CV 13.6 % (11.5-14.5); RED CELL DISTRIBUTION WIDTH SD 44.8 fL (36.4-46.3); WHITE BLOOD COUNT 13.83 K/uL (4.8-10.8)
[2017-07-27 04:51] LABS: INR 1.8 (0.9-1.1)
[2017-07-27 05:03] LABS: CALCIUM 8.2 mg/dl (8.5-10.1); CREATININE 0.92 mg/dl (0.60-1.40)
[2017-07-27] MEDS: VANCOMYCIN IV 1,500 MG in SODIUM CHLORIDE 0.9% 500ML 500 ML IV SCH ×2 (05:36→18:13)
[2017-07-27 07:11] VITALS: BP 125/82; PULSE 87; TEMP 36.8; O2SAT 93
[2017-07-27] MEDS: LIDODERM (LIDOCAINE) PATCH 5% TD SCH (08:21)
[2017-07-27] MEDS: ASPIRIN 81 MG ECTAB PO SCH (08:21)
[2017-07-27] MEDS: CLINDAMYCIN HCL 150 MG CAP PO SCH ×3 (08:22→21:15)
[2017-07-27] MEDS: SODIUM CHLORIDE 0.9% 1000ML 1,000 ML IV SCH ×2 (10:41→21:12)
[2017-07-27 11:37] VITALS: BP 142/90; PULSE 96; TEMP 38.4; O2SAT 92
--- NOTE | 2017-07-27 11:43 | Discharge Instructions ---
Discharge Instructions Date of Service July 27, 2017. Admission Reason for Admission: Neck Pain; Stroke-Like Symptoms Discharge Discharge Diagnosis / Problem: neck pain, fever, bacteremia, stroke-like symptoms Discharge Goals Goal(s): Diagnostic testing, Therapeutic intervention Activity Recommendations Activity Limitations: per Instructions/Follow-up section . Instructions / Follow-Up Instructions / Follow-Up Risk Factors for Stroke: You can reduce your chances of stroke by working with your medical provider to adopt a healthy lifestyle. Some specific ways to lower your chance of stroke are: * If you are a smoker, now is the time to stop smoking cigarettes * If you are diabetic, improve the control of your blood sugars * Avoid excessive amounts of alcohol * Control high blood pressure * Lose weight if you are overweight * Be sure to lead an active lifestyle * Eat a healthy diet low in salt, cholesterol and fat You should know about other risk factors for stroke that you are unable to control. These include: * Age 55 years or older * Male gender * Certain racial groups: , or / * Family History of Stroke, Mini stroke or Heart Attack * Sickle Cell Disease Follow Up: It is important for you to keep your follow up appointments with your medical provider. ADDITIONAL PROVIDER INSTRUCTIONS: [facility] [place] [place] [place]. Case was also discussed with Dr. Ornelas ( Neurology) DIAGNOSIS: h/o MCA stroke, h/o R ICA dissection with chronic occlusion. New stroke-like symptoms, +fever/GPC bacteremia, persistent neck pain and stiffness. CONDITION: fair VITALS: q4h ACTIVITY: OOB w/ assist DIET: low sodium INS AND OUTS: routine IV FLUIDS: KVO MEDS: see attached list. ALLERGIES: PCN. MONITORS: hemodynamic monitoring en route. Please follow-up with primary care physician within one week of discharge from receiving hospital. It was a pleasure taking care of you! Call if you have any questions or problems. You can reach a [facility] hospitalist on duty at [facility] 24 hours a day by calling [phone]. Take care of yourself. Jena Hunter DO [facility] Hospitalist Current Hospital Diet Patient's current hospital diet: AHA Diet (Heart Healthy) Discharge Diet Recommended Diet: AHA Diet (Heart Healthy) Procedures Procedures Performed: TTE: The interatrial septum is intact with no evidence for an atrial septal defect. Injection of contrast documented no interatrial shunt. Left ventricular systolic function is normal. Ejection Fraction = 55-60%. The right ventricular systolic function is normal. The left atrial size is normal. Right atrial size is normal. No significant valvular pathology. Pending Studies Studies pending at discharge: yes List of pending studies: preliminary blood cultures revealing GPC bacteremia but final results were pending at time of discharge. Laboratory Results Hemoglobin A1c Test 07/26/17 04:21 Range/Units Estimated Average Glucose 117 mg/dl Hemoglobin A1c 5.7 H 4.5-5.6 % Lipid Panel Test 07/26/17 04:21 Range/Units Triglycerides Level 67 0-150 mg/dl Cholesterol Level 112 0-200 mg/dl HDL Cholesterol 65 mg/dl Cholesterol/HDL Ratio 1.7 LDL Cholesterol, Calculated 34 mg/dl Medical Emergencies . Who to Call and When: Medical Emergencies: Call 911 immediately if you experience any of the following warning signs and symptoms of Stroke: * Sudden numbness or weakness of the face, arm or leg, especially on one side of the body * Sudden confusion, trouble speaking or understanding * Sudden trouble seeing in one or both eyes * Sudden trouble walking, dizziness, loss of balance or coordination * Sudden severe headache with no cause Do not delay calling 911 if you experience any warning signs or symptoms of a stroke. Delay in seeking medical attention may affect what treatments can be given to you. . Non-Emergent Contact Non-Emergency issues call your: Primary Care Provider . . "Provider Documentation" section prepared by Jena Hunter. . Stroke Core Measures Reason no t-PA for Stroke: Treatment not indicated Reason no antithrom by day 2: Treatment provided - N/A Reason no antithrom at D/C: Treatment provided - N/A Reason no statin at D/C: Treatment provided - N/A Reason no anticoag w/a fib: Treatment not indicated
--- NOTE | 2017-07-27 12:24 | Discharge Summary ---
Discharge Summary Date of Service July 27, 2017. Discharge Summary Admission Date: July 25, 2017 at 15:30 Discharge Date: July 27, 2017 Discharge Disposition: Acute care facility Principal Diagnosis: Strokelike symptoms in setting of prior MCA infarct Chronic right ICA occlusion chronic left subclavian arterial stenosis Gram-positive cocci bacteremia in setting of fever Possible periodontal disease Procedures: None-see imaging studies sent via disc. Vaccinations: None. Consultations: Dr. Chris Sadler-Vascular surgery Dr. Dora Vega-Neurology Dr. Sadaf Springer-Infectious Disease Pending Studies/Follow-Up: see instructions below. Medication Reconciliation Continued Medications: Aspirin (Aspirin EC Low Dose) 81 Mg Ectab 81 MG PO QAM for 30 Days Atorvastatin (Lipitor) 80 Mg Tab 80 MG PO QPM, TAB Discontinued Medications: Warfarin Sod (Jantoven) 7.5 Mg Tab 7.5 MG PO QPM, TAB Admission Information HPI (per Admitting provider): HISTORY OF PRESENT ILLNESS: This is a 67-year-old male with a past medical history significant for carotid artery dissection, CVA on 01/13/2017 and was admitted to the [facility] and residual Left sided weakness more in upper extremity, history of hypertension, but not on any medications, presents with severe neck pain starting today morning around 9am to 10am. At that time, he also had some left facial droop as per him he noticed this during prior stroke and because of this also and ongoing severe neck pain, came to the ER. The daughter noticed the symptoms around 10:30 a.m. today. The patient states with movement of his neck, he is getting a lot of stabbing pain, but denies any dizziness or spinning of the room. Denies any headaches, no blurred visions, no earache, no runny nose, no sore throat, no cough, no fever, no chills. No difficulty swallowing. No chest pain, no shortness of breath. No nausea, no vomiting, no abdominal pain. Normal bowel and bladder movements. No blood in the urine. No blood in the stools. No burning micturition. He gained about several pounds of weight since his stroke in January 2017. . He is supposed to follow with vascular surgery and neurology, but he did not follow up. He states he is not on any blood pressure medications. Currently resting comfortably, hemodynamically stable. Workup in the ER is so far unremarkable. Physical Exam (per Admitting): PHYSICAL EXAMINATION: GENERAL: The patient is of moderate build, not in distress. VITAL SIGNS: Temperature 36.7, pulse 80, respiratory rate 16, blood pressure 171/98, oxygen 97% on room air. HEENT: No pallor, no icterus. Pupils equal, round, and reactive to light. NECK: No JVD, no neck masses, no carotid bruits. CARDIOVASCULAR SYSTEM: S1, S2 heard. Regular rate and rhythm. No murmur, no gallop. RESPIRATORY SYSTEM: Normal AP diameter. No sweats. No wheezing, no crackles. ABDOMEN: Soft, bowel sounds present. Nontender. No distention. CENTRAL NERVOUS SYSTEM: Mild weakness in the left external upper extremity. Mild left facial droop. Coordination of movements normal. No pronator drift. Decreased sensation in his left hand. Hmexry-kc-gwai test normal. EXTREMITIES: No edema, no erythema. Hospital Course 67-year-old man with history of presented to the emergency room with reports of constant posterior neck stiffness and pain beginning shortly prior to arrival. His history is significant for a right internal carotid artery dissection with CVA and right internal carotid artery occlusion since January 2017. On exam he had worsening of left facial and arm weakness. On arrival to the ER on 07/25 he had a blood pressure 165/103 pulse 79. He was afebrile and oxygenating 97% on room air. Physical exam revealed a patient in no acute distress with normal heart and lung exam who was awake, alert, with no speech slurring. Left facial droop was noted. Left upper extremity and left lower extremity revealed some slight cerebellar dysfunction and subtle drifting as well as weakness. A head CT without contrast was performed revealing no change in the old right MCA territory infarcts with no acute intracranial abnormality. Chest x-ray revealed no acute process. Neck CTA revealed chronic occlusion of the right internal carotid artery which was unchanged, slight progression of the 75% stenosis within the proximal left subclavian artery, mild narrowing within the mid right vertebral artery likely secondary to compression from the adjacent cervical spine osteophytes, also unchanged, a 1.5 cm cystic focus at the apex of the mandible which could represent an odontogenic cyst or periapical lucency, a periapical lucency within the upper right molar which may extend into the floor of the right maxillary sinus resulting in a moderate mucosal thickening. A head CTA was performed revealing overall no significant change compared to prior studies. There was no new areas of vascular occlusion identified with a moderate focal stenosis within the left distal ICA approximately 60-70%. Chronic occlusion of the right internal carotid artery was seen with diminished perfusion and tapering of the mid to distal right MCA branches. This corresponded to old right MCA territory infarcts. Lab work revealed an elevated white count of 16,000 a normal chemistry panel, and INR 3.9 , magnesium level 1.8, negative troponin, CRP 0.38, negative urinalysis for infection. He was admitted to the hospitalist service and infectious disease and neurology were consulted.He was sent for an MRI but did not tolerate to attempt secondary to the inability to lay flat as well as severe claustrophobia. He did spike a temperature and blood cultures were obtained growing gram-positive cocci in 2 out of 2 sets he denied any recent hospitalization, open wounds, or trauma. He does have a history of dental disease but has not recently been to the dentist and reported no sent his family reported he did have some tooth pain recently infectious disease started him empirically on Vanco and clindamycin. His white count increased to 20,000 and sed rate was elevated at 22. MRI was again recommended. Neurology agreed with MRI of the brain and C-spine with and without contrast which again could not be performed. They also agreed and holding Coumadin provided there was not another indication for anticoagulation besides the carotid artery occlusion versus right carotid dissection. Aspirin was recommended to be continued. Vascular surgery was also consulted for worsening left subclavian arterial stenosis. Per Dr. Sadler, imaging appears similar to prior and the patient was asymptomatic from this stenosis, therefore, no vascular surgical intervention was recommended at this time. Due to the left subclavian arterial stenosis, blood pressure was recommended to be taken in the right upper extremity for accuracy. It was also recommended the patient follow-up in 1 year in the office for an outpatient carotid ultrasound. After the unsuccessful MRI attempts on 07/26 neurology was concerned about getting the MRI and recommended to transfer as anesthesia was not able to perform the MRI under sedation. Dr. Sandoval (hospitalist at [facility]) accepted the patient, and the case was also discussed with Dr. Ornelas in neurology. At time of discharge physical exam revealed persistent left facial droop persistent left-sided weakness and significant pain and decreased neck range of motion in all planes. He was notably uncomfortable requiring multiple changes in position in a short period of time. He was discharged in fair condition with close follow-up recommended after discharge from [place]. I did contact his daughter Doreen at his request and explained the situation to her. All questions were answered. The patient was transferred via ACLS. Total time spent on discharge = 60 minutes This includes examination of the patient, discharge planning, medication reconciliation, and communication with other providers. Discharge Instructions [address] [address] Discharge Stroke Condition Patient Name: Montez Camacho Unit Number: [id number] Date of : 1950 Patient Status: Admitted Inpatient Attending Doctor: Jena Hunter DO DI: Stroke v5 Discharge Instructions Date of Service July 27, 2017. Admission Reason for Admission: Neck Pain; Stroke-Like Symptoms Discharge Discharge Diagnosis / Problem: neck pain, fever, bacteremia, stroke-like symptoms Discharge Goals Goal(s): Diagnostic testing, Therapeutic intervention Activity Recommendations Activity Limitations: per Instructions/Follow-up section . Instructions / Follow-Up Instructions / Follow-Up Risk Factors for Stroke: You can reduce your chances of stroke by working with your medical provider to adopt a healthy lifestyle. Some specific ways to lower your chance of stroke are: * If you are a smoker, now is the time to stop smoking cigarettes * If you are diabetic, improve the control of your blood sugars * Avoid excessive amounts of alcohol * Control high blood pressure * Lose weight if you are overweight * Be sure to lead an active lifestyle * Eat a healthy diet low in salt, cholesterol and fat You should know about other risk factors for stroke that you are unable to control. These include: * Age 55 years or older * Male gender * Certain racial groups: , or / * Family History of Stroke, Mini stroke or Heart Attack * Sickle Cell Disease Follow Up: It is important for you to keep your follow up appointments with your medical provider. ADDITIONAL PROVIDER INSTRUCTIONS: [facility] [place] [place] [place]. Case was also discussed with Dr. Ornelas ( Neurology) DIAGNOSIS: h/o MCA stroke, h/o R ICA dissection with chronic occlusion. New stroke-like symptoms, +fever/GPC bacteremia, persistent neck pain and stiffness. CONDITION: fair VITALS: q4h ACTIVITY: OOB w/ assist DIET: low sodium INS AND OUTS: routine IV FLUIDS: KVO MEDS: see attached list. ALLERGIES: PCN. MONITORS: hemodynamic monitoring en route. Please follow-up with primary care physician within one week of discharge from receiving hospital. It was a pleasure taking care of you! Call if you have any questions or problems. You [facility] 24 hours a day by calling [phone]. Take care of yourself. Jena Hunter DO [facility] Hospitalist Current Hospital Diet Patient's current hospital diet: AHA Diet (Heart Healthy) Discharge Diet Recommended Diet: AHA Diet (Heart Healthy) Procedures Procedures Performed: TTE: The interatrial septum is intact with no evidence for an atrial septal defect. Injection of contrast documented no interatrial shunt. Left ventricular systolic function is normal. Ejection Fraction = 55-60%. The right ventricular systolic function is normal. The left atrial size is normal. Right atrial size is normal. No significant valvular pathology. Pending Studies Studies pending at discharge: yes List of pending studies: preliminary blood cultures revealing GPC bacteremia but final results were pending at time of discharge. Laboratory Results Hemoglobin A1c Test 07/26/17 04:21 Range/Units Estimated Average Glucose 117 mg/dl Hemoglobin A1c 5.7 H 4.5-5.6 % Lipid Panel Test 07/26/17 04:21 Range/Units Triglycerides Level 67 0-150 mg/dl Cholesterol Level 112 0-200 mg/dl HDL Cholesterol 65 mg/dl Cholesterol/HDL Ratio 1.7 LDL Cholesterol, Calculated 34 mg/dl Medical Emergencies . Who to Call and When: Medical Emergencies: Call 911 immediately if you experience any of the following warning signs and symptoms of Stroke: * Sudden numbness or weakness of the face, arm or leg, especially on one side of the body * Sudden confusion, trouble speaking or understanding * Sudden trouble seeing in one or both eyes * Sudden trouble walking, dizziness, loss of balance or coordination * Sudden severe headache with no cause Do not delay calling 911 if you experience any warning signs or symptoms of a stroke. Delay in seeking medical attention may affect what treatments can be given to you. . Non-Emergent Contact Non-Emergency issues call your: Primary Care Provider . . "Provider Documentation" section prepared by Jena Hunter. . Stroke Core Measures Reason no t-PA for Stroke: Treatment not indicated Reason no antithrom by day 2: Treatment provided - N/A Reason no antithrom at D/C: Treatment provided - N/A Reason no statin at D/C: Treatment provided - N/A Reason no anticoag w/a fib: Treatment not indicated Additional Copies To Leno Alexander M.D.
--- NOTE | 2017-07-27 13:59 | Progress Note ---
Subjective Date of Service: July 27, 2017. Subjective Pt evaluation today including: conversation w/ patient, conversation w/ family , physical exam, chart review, lab review ct negative, echo negative, all blood cultures with S. aureus, final pending. febrile overnight, tmax 39.5. unable to have MRI, transfer pending. daughter at bedside, states pt confused overnight, combative. now sedated, unable to answer questions. Problem List Medical Problems: (1) Carotid artery occlusion Status: Acute (2) CVA (cerebral vascular accident) Status: Acute (3) Leukocytosis Status: Acute (4) Neck pain Status: Acute (5) Stroke-like symptoms Status: Acute (6) Weakness Status: Acute Objective Vital Signs Date Time Temp Pulse Resp B/P (MAP) Pulse Ox O2 Delivery O2 Flow Rate FiO2 07/27/17 13:09 38.4 96 19 92 Room Air 07/27/17 12:00 Room Air 07/27/17 11:37 38.4 96 19 142/90 (107) 92 Room Air 07/27/17 08:00 Room Air 07/27/17 07:11 36.8 87 20 125/82 (96) 93 Room Air 07/27/17 04:00 Room Air 07/27/17 03:45 37.0 105 20 145/84 (104) 92 Room Air 07/27/17 00:00 Room Air 07/26/17 23:38 37.3 107 22 173/114 (133) 92 Room Air 07/26/17 20:00 Room Air 07/26/17 19:57 39.5 103 18 176/80 (112) 91 Room Air 07/26/17 16:08 37.3 87 20 124/73 (90) 92 Room Air 07/26/17 16:00 Room Air Physical Exam General Appearance: WD/WN, + pertinent finding (sedated) Neck: supple Respiratory/Chest: normal breath sounds, no respiratory distress Cardiovascular: no murmur Abdomen: soft Extremities: no pedal edema Skin: normal color Laboratory Results Item Value Date Time Blood Culture - Preliminary Resulted 07/25/17 1502 Blood Staphylococcus Aureus Blood Culture - Preliminary Resulted 07/25/17 1509 Blood Staphylococcus Aureus Blood Culture - Preliminary Resulted 07/26/17 1145 Blood Gram Positive Cocci Blood Culture - Preliminary Resulted 07/26/17 1145 Blood Gram Positive Cocci Last 24 Hours Test 07/26/17 20:23 07/27/17 04:12 07/27/17 05:12 Lactic Acid Level 0.7 mmol/L White Blood Count 13.83 K/uL Red Blood Count 4.38 M/uL Hemoglobin 13.4 g/dL Hematocrit 38.9 % Mean Corpuscular Volume 88.8 fL Mean Corpuscular Hemoglobin 30.6 pg Mean Corpuscular Hemoglobin Concent 34.4 g/dl Platelet Count 257 K/uL Mean Platelet Volume 9.9 fL Neutrophils (%) (Auto) 83.2 % Lymphocytes (%) (Auto) 6.9 % Monocytes (%) (Auto) 9.5 % Eosinophils (%) (Auto) 0.0 % Basophils (%) (Auto) 0.1 % Neutrophils # (Auto) 11.50 K/uL Lymphocytes # (Auto) 0.95 K/uL Monocytes # (Auto) 1.32 K/uL Eosinophils # (Auto) 0.00 K/uL Basophils # (Auto) 0.02 K/uL RDW Standard Deviation 44.8 fL RDW Coefficient of Variation 13.6 % Immature Granulocyte % (Auto) 0.3 % Immature Granulocyte # (Auto) 0.04 K/uL Prothrombin Time 18.7 SECONDS Prothromb Time International Ratio 1.8 Sodium Level 134 mmol/L Potassium Level mmol/L 3.6 mmol/L Chloride Level 101 mmol/L Carbon Dioxide Level 25 mmol/L Anion Gap 8.0 mmol/L Blood Urea Nitrogen 12 mg/dl Creatinine 0.92 mg/dl Est Creatinine Clear Calc Drug Dose 89.6 ml/min Estimated GFR () 100.1 Estimated GFR (Non- 86.4 BUN/Creatinine Ratio 13.2 Random Glucose 91 mg/dl Calcium Level 8.2 mg/dl Assessment and Plan (1) Staphylococcus aureus septicemia Assessment & Plan: continue abx. for transfer to [facility]. will need repeat blood cultures and possibly lp. mri pending
--- NOTE | 2017-07-27 14:47 | Neurology Progress Notes ---
Neurology Progress Note Date of Service July 27, 2017. Subjective [place] male 67 years old with PMH HTN, carotid artery dissection, CVA on 2016. He presents with severe neck pain starting today morning and he has left weakness from his stroke in January 2017. He felt his left facial droop and weakness was worse. He has chronic neck pain but it was severe this am. His daughter noticed the symptoms around 10:30 am. He was getting alot of stabbing pain movement of his neck. Some weakness and on the left side is from his previous stroke. He was told to follow up with vascular surgery and neurology but he never did. He takes no blood pressure medications. He is currently sleeping and daughter is in room and aware of the pending transfer to [facility]. He had a MS change last night and she was very concerned about his well fair and care. We were informed earlier today the MRI with anaesthesia will not take place until Wednesday or which is compromising care plan. Objective Date Time Temp Pulse Resp B/P (MAP) Pulse Ox O2 Delivery O2 Flow Rate FiO2 07/27/17 13:09 38.4 96 19 92 Room Air 07/27/17 12:00 Room Air 07/27/17 11:37 38.4 96 19 142/90 (107) 92 Room Air 07/27/17 08:00 Room Air 07/27/17 07:11 36.8 87 20 125/82 (96) 93 Room Air 07/27/17 04:00 Room Air 07/27/17 03:45 37.0 105 20 145/84 (104) 92 Room Air 07/27/17 00:00 Room Air 07/26/17 23:38 37.3 107 22 173/114 (133) 92 Room Air 07/26/17 20:00 Room Air 07/26/17 19:57 39.5 103 18 176/80 (112) 91 Room Air 07/26/17 16:08 37.3 87 20 124/73 (90) 92 Room Air 07/26/17 16:00 Room Air Last 24 Hours Test 07/26/17 20:23 07/27/17 04:12 07/27/17 05:12 Lactic Acid Level 0.7 mmol/L White Blood Count 13.83 K/uL Red Blood Count 4.38 M/uL Hemoglobin 13.4 g/dL Hematocrit 38.9 % Mean Corpuscular Volume 88.8 fL Mean Corpuscular Hemoglobin 30.6 pg Mean Corpuscular Hemoglobin Concent 34.4 g/dl Platelet Count 257 K/uL Mean Platelet Volume 9.9 fL Neutrophils (%) (Auto) 83.2 % Lymphocytes (%) (Auto) 6.9 % Monocytes (%) (Auto) 9.5 % Eosinophils (%) (Auto) 0.0 % Basophils (%) (Auto) 0.1 % Neutrophils # (Auto) 11.50 K/uL Lymphocytes # (Auto) 0.95 K/uL Monocytes # (Auto) 1.32 K/uL Eosinophils # (Auto) 0.00 K/uL Basophils # (Auto) 0.02 K/uL RDW Standard Deviation 44.8 fL RDW Coefficient of Variation 13.6 % Immature Granulocyte % (Auto) 0.3 % Immature Granulocyte # (Auto) 0.04 K/uL Prothrombin Time 18.7 SECONDS Prothromb Time International Ratio 1.8 Sodium Level 134 mmol/L Potassium Level mmol/L 3.6 mmol/L Chloride Level 101 mmol/L Carbon Dioxide Level 25 mmol/L Anion Gap 8.0 mmol/L Blood Urea Nitrogen 12 mg/dl Creatinine 0.92 mg/dl Est Creatinine Clear Calc Drug Dose 89.6 ml/min Estimated GFR () 100.1 Estimated GFR (Non- 86.4 BUN/Creatinine Ratio 13.2 Random Glucose 91 mg/dl Calcium Level 8.2 mg/dl Imaging: CT neck- . Multilevel degenerative changes of the cervical spine with multilevel osseous neural foraminal narrowing and spinal canal stenosis most significant at C5-6. This is unchanged from the prior CT. No acute osseous injury allowing for motion artifact. No evidence of inflammatory change or abscess within the visualized portion of the neck. Exam: Gen: resting comfortably lungs normal respiratory effort CV RRR moves spontaneously Current Inpatient Medications Medications (Trade) Dose Ordered Sig/Daniel Route Start Time Stop Time Status Last Admin Dose Admin Ioversol (Optiray 320) 100 ml UD PRN IV 07/25/17 13:00 07/29/17 12:59 Acetaminophen (Tylenol Tab) 650 mg Q4H PRN PO 07/25/17 15:30 08/24/17 15:29 07/26/17 19:26 650 MG Ondansetron HCl (Zofran Inj) 4 mg Q6H PRN IV 07/25/17 15:30 08/24/17 15:29 Nitroglycerin (Nitrostat Tab) 0.4 mg UD PRN SL 07/25/17 15:30 08/24/17 15:29 Aspirin (Ecotrin Tab) 81 mg QAM PO 07/26/17 09:00 08/25/17 08:59 07/27/17 08:21 81 MG Atorvastatin Calcium (Lipitor Tab) 80 mg QPM PO 07/25/17 21:00 08/24/17 20:59 07/26/17 20:41 80 MG Warfarin Sodium (Coumadin Tab) 7.5 mg DAILY@1600 PO 07/26/17 16:00 08/25/17 15:59 Future Hold Lorazepam (Ativan Inj) 0.5 mg ONE PRN IV 07/25/17 15:30 08/24/17 15:29 07/25/17 23:24 0.5 MG Clindamycin HCl (Cleocin Cap) 600 mg TID PO 07/25/17 21:00 08/04/17 20:59 07/27/17 13:30 600 MG Miscellaneous Information (Consult) 1 ea UD PRN N/A 07/26/17 07:15 08/25/17 07:14 Vancomycin HCl 1500 mg/Sodium Chloride 530 ml @ 200 mls/hr Q12H IV 07/26/17 18:00 08/09/17 17:59 07/27/17 05:36 200 MLS/HR Hydromorphone HCl (Dilaudid Inj) 0.5 mg Q3HWA PRN IV 07/26/17 11:30 08/09/17 11:29 07/27/17 10:41 0.5 MG Oxycodone/ Acetaminophen (Percocet 5-325mg Tab) 1 tab Q4H PRN PO 07/26/17 11:30 08/09/17 11:29 07/27/17 13:30 1 TAB Lidocaine (Lidoderm Patch 5%) 1 patch QAM TD 07/26/17 12:00 08/25/17 11:59 07/27/17 08:21 1 PATCH Miscellaneous (Remove Lidoderm Patch) 1 ea DAILY@21 N/A 07/26/17 21:00 08/25/17 20:59 07/26/17 20:38 1 EA Ioversol (Optiray 320) 125 ml UD PRN IV 07/26/17 16:00 07/30/17 15:59 Levofloxacin 750 mg/Prmx 150 ml @ 100 mls/hr HS IV 07/26/17 21:00 07/28/17 20:59 07/26/17 21:46 100 MLS/HR Sodium Chloride 1,000 ml @ 100 mls/hr Q10H IV 07/26/17 20:15 08/25/17 20:14 07/27/17 10:41 100 MLS/HR Impression 67 year old male with severe neck pain and 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 needs both MRI brain and c spine - urgent to have done- anaesthesia needed unable to sedate 2. sepsis -x 2 blood - ID for optimizing antibiotic treatment- elevated WBC, sed rate gram + cocci 3. patient states no falls but increased neck pain 4. fall precautions 5. optimize HTN, DL 6. if source is not found will need LP for possible meningitis- will be determined after MRI brain and c spine is completed 7. TTE with no ASD or valvular pathology ?? need for JAZZY 8. CT c spine with and without while waiting for MRI- no acute bar abnormalities 9. agree with transfer to high level of care. please see previous notes for full exam and care plan I have seen and discussed above patient with Dr Dora Vega, neurology Pt not seen by myself today, as he is in the process of transfer so that he may have sooner MRI imaging under anesthesia. See my prior notes. MERVAT Vega MD
[2017-07-27 16:06] VITALS: BP 134/80; PULSE 95; TEMP 37.1; O2SAT 91
[2017-07-27 19:27] VITALS: BP 126/88; PULSE 95; TEMP 37.7; O2SAT 91
[2017-07-27 20:00] VITALS: O2SAT 91
[2017-07-27] MEDS ORDERED: HYDROmorphone INJ 0.5 MG/0.5 ML SYR IV ONE (20:06)
[2017-07-27] MEDS: LEVOFLOXACIN / D5W 750 MG in PREMIXED IN D5W 150 ML IV SCH (21:12)
[2017-07-27] MEDS: ATORVASTATIN 40 MG TAB PO SCH (21:15)
[2017-07-28] MEDS ORDERED: VANCOMYCIN TROUGH ONE (05:30)
== END 2017-07-27 22:36 | disposition short-term general hospital (02) | DRG 872 ==
LOC: C.EDB 12:11 → C.2T 15:30 → ENRESERV 15:45
PROVIDERS: ADMIT Internal Medicine; ATTEND Hospitalist
DX: A41.1 Sepsis due to other specified staphylococcus (principal); I69.354 Hemiplegia and hemiparesis following cerebral infarction affecting left non-dominant side; I65.21 Occlusion and stenosis of right carotid artery; I69.392 Facial weakness following cerebral infarction; I77.1 Stricture of artery; M54.2 Cervicalgia; I10 Essential (primary) hypertension; E78.5 Hyperlipidemia, unspecified; Z79.01 Long term (current) use of anticoagulants; Z79.82 Long term (current) use of aspirin; Z79.899 Other long term (current) drug therapy; Z87.891 Personal history of nicotine dependence; Z88.0 Allergy status to penicillin